=== PATIENT | female | born 1945 | race Caucasian/White ===

== ENCOUNTER 2016-07-21 13:40 | Inpatient (IN) | payer MEDICARE ==
[~2016-07-21] VITALS: Ht 154.9 cm; Wt 68.7 kg
[~2016-07-21 13:40] MED LIST: ALPR0.25 PO; ASPI-482 PO; DEXT10TA38 PO; DEXT20TA24 PO; FLUO20CA16 PO; INSU100I13 SQ; INSU100V5 SUBCUT; LOSA50TA6 PO; METO25TA9 PO; NEBI5TAB2 PO; TRAM50TA PO; TRAZ50TA15 PO
[2016-07-21 14:09] LABS: BASO # 0.1 x10^3/uL (0.0-0.2); BASO % 1 % (0-3); EOS # 0.1 x10^3/uL (0.0-0.7); EOS % 1 % (0-3); HEMATOCRIT 42.8 % (36.0-47.0); HEMOGLOBIN 14.3 g/dL (12.0-15.5); LYMPH # 1.4 x10^3/uL (1.0-4.8); LYMPH % 11 % (24-48); MEAN CORPUSCULAR HEMOGLOBIN 29 pg (25-35); MEAN CORPUSCULAR HGB CONC 34 g/dL (31-37); MEAN CORPUSCULAR VOLUME 88 fL (79-100); MONO # 0.8 x10^3/uL (0.0-1.1); MONO % 7 % (0-9); NEUT # 10.5 x10^3uL (1.8-7.7); NEUT % 81 % (31-73); PLATELET COUNT 272 x10^3/uL (140-400); RED BLOOD COUNT 4.89 x10^6/uL (3.50-5.40); RED CELL DISTRIBUTION WIDTH 13.7 % (11.5-14.5)
[2016-07-21 14:19] LABS: ALBUMIN 3.1 g/dL (3.4-5.0); ALBUMIN/GLOBULIN RATIO 0.7 (1.0-1.7); CALCIUM 9.3 mg/dL (8.5-10.1); CREATININE 1.5 mg/dL (0.6-1.0); GFR 34.1; POTASSIUM 3.5 mmol/L (3.5-5.1); TOTAL BILIRUBIN 0.5 mg/dL (0.2-1.0); TOTAL PROTEIN 7.4 g/dL (6.4-8.2)
--- NOTE | 2016-07-21 14:19 | RAD ---
CT of the head without contrast, 07/21/2016: History: Dizziness, Right leg numbness Comparison is made to a study from 09/04/2014. There is moderate cerebral atrophy. The ventricles are within normal limits in size. There is no shift of the midline structures. There is no evidence of acute intracranial hemorrhage or mass effect. Small lucencies along the lateral aspects of both basal ganglia are probably old infarcts. No abnormal extra-axial fluid collection or mass is seen. IMPRESSION: 1. Chronic findings as described above. 2. No acute intracranial abnormality is detected. PQRS Compliance Statement: One or more of the following individualized dose reduction techniques were utilized for this examination: 1. Automated exposure control 2. Adjustment of the mA and/or kV according to patient size 3. Use of iterative reconstruction technique
[2016-07-21] MEDS ORDERED: ASPIRIN 81 MG TAB.CHEW ONE (16:43)
[2016-07-21] MEDS ORDERED: INSULIN REGULAR 100 UNIT/ML 10ML VIAL. SQ ONE (16:45)
[2016-07-21] MEDS ORDERED: IV NORMAL SALINE 1,000ML 1,000 ML IV ONE (16:45)
[2016-07-21] MEDS ORDERED: ASPIRIN ENTERIC COATED 81 MG TABLET.DR. PO ONE (17:00)
--- NOTE | 2016-07-21 17:49 | ED.ADGEN ---
Past History Past Medical History: Diabetes, Hypertension Past Surgical History: Cholecystectomy, Hysterectomy, Tubal ligation Smoking: Non-smoker Alcohol Use: None Drug Use: None Adult General Chief Complaint Chief Complaint Dizziness, fall HPI HPI Patient is a 70-year-old with history of CVA who presents with dizziness acute onset last night with fall while getting out of bed earlier this morning. Patient is unclear when she fell, initially she states was last night and then this morning. She landed on her right shoulder and elbow. Denies hitting head, loss of consciousness or neck pain. Reports right arm weakness and right leg numbness.ient is not on anticoagulation therapy. She lives at home alone and was found by her daughter after my for at least 1 hour prior to ED arrival. No other acute symptoms or complaints. Blood sugars noted be elevated its patient was unable to take insulin this morning secondary to fall. Review of Systems Review of Systems Review symptoms as per HPI. All other review of symptoms are negative. Current Medications Current Medications Current Medications Medications (Trade) Dose Ordered Sig/Mathew Start Time Stop Time Status Last Admin Dose Admin Aspirin (Aspirin Enteric Coated) 162 mg 1X ONCE 07/21/16 17:00 07/21/16 17:01 DC 07/21/16 16:47 162 MG Aspirin (Children'S Aspirin) 81 mg STK-MED ONCE 07/21/16 16:43 07/21/16 16:44 DC Insulin Human Regular (Novolin R) 10 unit 1X ONCE 07/21/16 16:45 07/21/16 16:46 DC 07/21/16 16:41 10 UNIT Sodium Chloride (Iv Sodium Chloride 0.9% 1,000ml) 1,000 ml @ 1,000 mls/hr 1X ONCE 07/21/16 16:45 07/21/16 17:44 07/21/16 16:40 1,000 MLS/HR Allergies Allergies Allergies Coded Allergies Type Severity Reaction Last Updated Verified Penicillins Allergy Intermediate rash 09/03/13 Yes Physical Exam Physical Exam Constitutional: Well developed, well nourished, no acute distress, non-toxic appearance. HENT: Normocephalic, atraumatic, bilateral external ears normal, oropharynx moist, no oral exudates, nose normal. Eyes: PERRLA, EOMI, conjunctiva normal. Neck: Normal range of motion, no midline tenderness. Cardiovascular:Heart rate regular rhythm, no murmur. Lungs & Thorax: Bilateral breath sounds clear to auscultation. Abdomen: Bowel sounds normal, soft, no tenderness, no masses, no pulsatile masses. Skin: Warm, dry. Back: No tenderness. Extremities: Right upper extremity, bruising nations her right extremity, no joint tenderness, swelling or deformities. Neurologic: Alert and oriented X 3, cranial nerves II through XII grossly intact , right pronator drift, decreased sensation right leg, no lower extremity motor weakness. Reflexes 2+ and symmetric upper and lower. Psychologic: Affect normal, judgement normal, mood normal. Current Patient Data Vital Signs Vital Signs Date Time Temp Pulse Resp B/P Pulse Ox O2 Delivery O2 Flow Rate FiO2 07/21/16 14:14 97.9 96 18 98 Room Air Lab Results Laboratory Tests Test 07/21/16 13:50 White Blood Count 13.0x10^3/uL (4.0-11.0) H Red Blood Count 4.89x10^6/uL (3.50-5.40) Hemoglobin 14.3g/dL (12.0-15.5) Hematocrit 42.8% (36.0-47.0) Mean Corpuscular Volume 88fL (79-100) Mean Corpuscular Hemoglobin 29pg (25-35) Mean Corpuscular Hemoglobin Concent 34g/dL (31-37) Red Cell Distribution Width 13.7% (11.5-14.5) Platelet Count 272x10^3/uL (140-400) Neutrophils (%) (Auto) 81% (31-73) H Lymphocytes (%) (Auto) 11% (24-48) L Monocytes (%) (Auto) 7% (0-9) Eosinophils (%) (Auto) 1% (0-3) Basophils (%) (Auto) 1% (0-3) Neutrophils # (Auto) 10.5x10^3uL (1.8-7.7) H Lymphocytes # (Auto) 1.4x10^3/uL (1.0-4.8) Monocytes # (Auto) 0.8x10^3/uL (0.0-1.1) Eosinophils # (Auto) 0.1x10^3/uL (0.0-0.7) Basophils # (Auto) 0.1x10^3/uL (0.0-0.2) Sodium Level 136mmol/L (136-145) Potassium Level 3.5mmol/L (3.5-5.1) Chloride Level 99mmol/L (98-107) Carbon Dioxide Level 27mmol/L (21-32) Anion Gap 10 (6-14) Blood Urea Nitrogen 27mg/dL (7-20) H Creatinine 1.5mg/dL (0.6-1.0) H Estimated GFR (Cockcroft-Gault) 34.1 BUN/Creatinine Ratio 18 (6-20) Glucose Level 388mg/dL (70-99) H Calcium Level 9.3mg/dL (8.5-10.1) Total Bilirubin 0.5mg/dL (0.2-1.0) Aspartate Amino Transferase (AST) 17U/L (15-37) Alanine Aminotransferase (ALT) 24U/L (14-59) Alkaline Phosphatase 124U/L (46-116) H Creatine Kinase 185U/L (26-192) Troponin I Quantitative < 0.017ng/mL (0-0.055) Total Protein 7.4g/dL (6.4-8.2) Albumin 3.1g/dL (3.4-5.0) L Albumin/Globulin Ratio 0.7 (1.0-1.7) L EKG EKG [EKG: Normal sinus rhythm.] Radiology/Procedures Radiology/Procedures [CT head chronic findings, no acute intracranial abnormality.] Impressions: Dizziness and fall with right upper extremity weakness and right lower extremity numbness likely tripping to fall. Course & Med Decision Making Course & Med Decision Making Pertinent Labs and Imaging studies reviewed. (See chart for details) [NIH SS 5. Patient unable to recollect time of fall. She does not recall time of fall, but timeline is suggestive greater than 4.5 hours prior to ED arrival bruising appears to be several hours old. TPA contraindicated, aspirin given. Blood sugar address. Dr. Elmore to admit. Final Impression Final Impression [1. CVA 2. Right sided weakness 3. hyperglycemia] Problems: Dragon Disclaimer Dragon Disclaimer This electronic medical record was generated, in whole or in part, using a voice recognition dictation system. AVA SILVA DO Jul 21, 2016 17:49
[2016-07-21] MEDS ORDERED: FLUO40CA2 PO (19:46)
[2016-07-21] MEDS ORDERED: ATOR10TA60 PO (19:46)
[2016-07-21] MEDS ORDERED: CARV6.252 PO (19:46)
[2016-07-21] MEDS ORDERED: QUET50TA5 PO (19:48)
[2016-07-21] MEDS ORDERED: ASPI1TAB2 PO (19:49)
[2016-07-21] MEDS ORDERED: ASA/APAP/CAFFEINE 250/250/65MG TABLET. PO PRN (20:00)
[2016-07-21 20:18] LABS: BILIRUBIN,URINE NEG (NEG); CLARITY,URINE CLEAR; COLOR,URINE YELLOW; GLUCOSE,URINE NEG (NEG); NITRITE,URINE NEG (NEG); UROBILINOGEN,URINE 0.2 mg/dL (0.2 mg/dL)
[2016-07-21 20:31] VITALS: BP 180/89
[2016-07-21] MEDS ORDERED: INSULIN DETEMIR 300 UNITS/3 ML INSULN.PEN. SQ SCH (21:00)
[2016-07-21] MEDS: ACETAMINOPHEN 650 MG/20.3 ML SOLUTION. PO SCH ×2 (21:02→21:21)
[2016-07-21] MEDS: QUEtiapine 50 MG TABLET. PO SCH (21:04)
[2016-07-21] MEDS: CARVEDILOL 6.25 MG TABLET PO SCH (21:04)
[2016-07-21] MEDS: ATORVASTATIN CALCIUM 10 MG TABLET. PO SCH (21:04)
[2016-07-21] MEDS: IV NORMAL SALINE 1,000ML 1,000 ML IV SCH (21:11)
[2016-07-21] MEDS ORDERED: ASPIRIN 81 MG TAB.CHEW PO ONE (22:00)
[2016-07-21] MEDS ORDERED: AMLODIPINE BESYLATE 5 MG TABLET PO ONE (22:00)
[2016-07-21] MEDS: HYDROCODONE/APAP 5/325MG TABLET. PO PRN (22:08)
[2016-07-21 22:15] VITALS: BP 159/78
[2016-07-21 23:05] VITALS: BP 158/82
--- NOTE | 2016-07-22 03:01 | CONS ---
DATE OF CONSULTATION: 07/21/2016 REFERRING PHYSICIAN: ANISH HOYOS DO REASON FOR CONSULTATION: Right-sided weakness and numbness. HISTORY OF PRESENT ILLNESS: This is a 70-year-old right-handed white female who has been in her usual state of health until this morning around 10:00 when she woke up. She had right-sided weakness confined to the upper or lower extremities, associated with numbness and paresthesia of the face as well. The patient went last night to bed and had no neurological complaints. She denies headaches, visual disturbances, nausea, vomiting, chest pain, shortness of breath or palpitations, dysarthria or dysphagia. EMS was activated. On arrival to the Emergency Room, her blood pressure was high. Her blood sugar was markedly elevated at 388. The patient did not have any memory loss. When she tried to get out of the bed, she fell on the floor and had several ecchymoses over the right upper and lower extremities. She was unable to take her insulin in the morning secondary to fall. PAST MEDICAL HISTORY: Significant for hypertension, hyperlipidemia, diabetes mellitus was poorly controlled probably due to noncompliance, arthritis, fibromyalgia, attention deficit disorders. SOCIAL HISTORY: The patient denies smoking, alcohol drinking, or illicit drug use. PAST SURGICAL HISTORY: Significant for cholecystectomy, hysterectomy, and tubal ligation. REVIEW OF SYSTEMS: Weakness and numbness of the right upper and lower extremities and mild numbness of the right face. Otherwise, unremarkable. PHYSICAL EXAMINATION: GENERAL: Well-developed, well-nourished, white female, not in acute distress. She weighs 152.3 pounds. VITAL SIGNS: Blood pressure 180/81, respiratory rate is 20, pulse is 90 and regular, temperature 98.3, oxygen saturation 98% on room air. HEENT: Normocephalic, atraumatic, otherwise unremarkable. NECK: Supple. Negative for carotid bruit, lymphadenopathy or thyromegaly. LUNGS: Clear to A and P. CARDIOVASCULAR: Regular rate and rhythm, normal S1, S2. There is no S3, S4 or murmur. ABDOMEN: Soft, bowel sounds positive. There is no bowel mass, organomegaly or tenderness. EXTREMITIES: Negative for cyanosis, clubbing or pitting edema. NEUROLOGIC: MENTAL STATUS: The patient is alert and oriented x 3. Speech is fluent. There is no language dysfunction. Memory is intact. Judgment, abstract and thinkings are normal. The patient denies hallucination or delusion. CRANIAL NERVES: Visual awad are full. The pupils are reactive to light and accommodation. Extraocular movements are intact. There is no nystagmus. There is no facial deficit. The strength is 4/5 in the right upper and lower extremities with the right upper extremity pronation. MOTOR EXAMINATION: The strength in the left upper and lower extremities is normal at 5/5 throughout. SENSORY EXAMINATION: Revealed diminished pinprick and light touch senses over the right face, right upper and lower extremities. Sensory examination also was normal to pinprick, light touch, vibratory and position senses. DEEP TENDON REFLEXES: Symmetric and active with a positive Babinski on the right side. GAIT: The patient has unsteady stance. COORDINATION: The patient has abnormal [id number] and [id number] on the right side compared to normal findings on the left side. DIAGNOSTIC: Initial nonenhanced head CT scan revealed evidence of old small infarct on the bilateral basal ganglia, otherwise no acute intracranial process. LABORATORY DATA: CBC revealed white blood cells of 15,000, hemoglobin 14.3, hematocrit 42.8, platelet count of 272,000. with left shift. Chemistry: Sodium of 136, potassium 3.5, chloride 99, CO2 27, BUN 27, creatinine 1.5, glucose 388, calcium 9.3, alkaline phosphatase is 124. Troponin level less than 0.017. Creatinine kinase is normal at 185, magnesium is 1.9. Urinalysis revealed no evidence of urinary tract infections. Coagulation: PT is 10.1, INR is 1. IMPRESSION: 1. Acute onset of right hemiparesis and hemisensory deficit. Rule out left hemispheric ischemic stroke. The patient has multiple risk factors for stroke including severe hypertension, hyperlipidemia and poorly controlled diabetes mellitus. 2. Multiple medical problems include hypertension, hyperlipidemia, poorly controlled diabetes mellitus insulin-dependent, and anxiety. RECOMMENDATIONS: 1. Start the patient on aspirin 325 mg. 2. Heparin subacute 5000 q 8 hours. 3. Brain MRI. 4. Carotid Doppler study, echocardiogram. 5. Fasting lipid profile. 6. Physical therapy. 7. Treat underlying severe hypertensions and add amlodipine at 5 mg and adjust the dose accordingly. M Silvina PARTIDA MD DR: ROBERT/nicho JOB#: [id number] / [id number]
[2016-07-22] MEDS: IV NORMAL SALINE 1,000ML 1,000 ML IV SCH ×2 (05:24→10:00)
[2016-07-22] MEDS: ACETAMINOPHEN 650 MG/20.3 ML SOLUTION. PO SCH ×3 (05:26→20:46)
[2016-07-22 05:27] VITALS: BP 167/81
[2016-07-22] MEDS: HEPARIN PF for SUB-Q USE 5,000 UNIT/0.5 ML VIAL. SQ SCH ×3 (05:28→21:02)
[2016-07-22 06:39] LABS: BASO # 0.1 x10^3/uL (0.0-0.2); BASO % 1 % (0-3); EOS # 0.3 x10^3/uL (0.0-0.7); EOS % 4 % (0-3); HEMATOCRIT 37.2 % (36.0-47.0); HEMOGLOBIN 12.5 g/dL (12.0-15.5); LYMPH % 38 % (24-48); MEAN CORPUSCULAR HEMOGLOBIN 29 pg (25-35); MEAN CORPUSCULAR HGB CONC 34 g/dL (31-37); MEAN CORPUSCULAR VOLUME 87 fL (79-100); MONO # 0.8 x10^3/uL (0.0-1.1); MONO % 10 % (0-9); NEUT # 3.9 x10^3uL (1.8-7.7); NEUT % 49 % (31-73); PLATELET COUNT 254 x10^3/uL (140-400); RED BLOOD COUNT 4.25 x10^6/uL (3.50-5.40); RED CELL DISTRIBUTION WIDTH 14.5 % (11.5-14.5); WHITE BLOOD COUNT 8.1 x10^3/uL (4.0-11.0)
[2016-07-22 06:51] LABS: ALBUMIN 2.6 g/dL (3.4-5.0); ALBUMIN/GLOBULIN RATIO 0.7 (1.0-1.7); CALCIUM 8.3 mg/dL (8.5-10.1); CREATININE 1.4 mg/dL (0.6-1.0); POTASSIUM 3.1 mmol/L (3.5-5.1); TOTAL BILIRUBIN 0.4 mg/dL (0.2-1.0); TOTAL PROTEIN 6.1 g/dL (6.4-8.2)
[2016-07-22] MEDS: HYDROCODONE/APAP 5/325MG TABLET. PO PRN ×3 (07:49→16:11)
[2016-07-22] MEDS ORDERED: ASPIRIN 81 MG TAB.CHEW PO SCH ×2 (08:00)
[2016-07-22] MEDS ORDERED: POTASSIUM CHLORIDE 20 MEQ TABLET.ER. PO ONE (08:00)
[2016-07-22 08:03] VITALS: BP 154/75
[2016-07-22] MEDS: LIDOCAINE (700MG/PATCH) PATCH. TD SCH (08:25)
[2016-07-22] MEDS: ASPIRIN 325 MG TABLET PO SCH (08:50)
[2016-07-22] MEDS: FLUOXETINE HCL 20 MG CAPSULE PO SCH (08:51)
[2016-07-22] MEDS: INSULIN ASPART 300 UNITS/3 ML INSULN.PEN SQ SCH ×4 (08:57→20:47)
[2016-07-22] MEDS: CARVEDILOL 6.25 MG TABLET PO SCH ×2 (09:17→18:10)
[2016-07-22] MEDS: ATORVASTATIN CALCIUM 10 MG TABLET. PO SCH (09:17)
[2016-07-22 10:10] VITALS: BP 123/71
--- NOTE | 2016-07-22 10:52 | RAD ---
Carotid ultrasound, 07/22/2016: History: Weakness and tingling, possible CVA Duplex evaluation of the carotid arteries in the neck was performed including grayscale, color-flow and spectral Doppler analysis. There is mild intimal thickening in the common carotid arteries and smooth plaquing at the carotid bifurcations. There is moderate tortuosity of the proximal right internal carotid artery. The Doppler data obtained from the bifurcations reveals no significant focal velocity acceleration to suggest hemodynamically significant carotid stenosis. The peak systolic velocity in the right internal carotid artery is 85 cm/s, and on the left is 57 cm/s. Antegrade flow is present in both vertebral arteries in the neck. IMPRESSION: Mild atherosclerotic plaquing at both carotid bifurcations with underlying luminal narrowing in the 0-50% diameter range bilaterally. Note: Stenosis calculations for CT, MRA and conventional angiography are based upon determination of the distal ICA diameter in accordance with the NASCET methodology. Stenosis calculations for Doppler studies are derived from validated velocity criteria which are known to correlate with NASCET methodology of determining stenosis.
--- NOTE | 2016-07-22 12:25 | HP ---
ADMIT DATE: 07/21/2016 REASON FOR ADMISSION: Stroke-like symptoms. HISTORY OF PRESENT ILLNESS: This is a 70-year-old female, who got up yesterday morning and the right leg was so numb that she could not walk on it. The patient fell and was on the floor for an hour until her daughter came. She was also complaining of right-sided weakness and some numbness of her face as well. She was fine prior to that going to bed. The patient was brought by ambulance to the Emergency Room. She was not a candidate for stroke intervention as far as acute stroke. PAST MEDICAL HISTORY: Hypertension, type 2 diabetes, adult attention deficit disorder, history of frequent falls, in 2013 had a fall with a small subdural hematoma, 09/2014 had an episode of slurred speech and weakness as well. ALLERGIES: PENICILLIN. MEDICATIONS: She does not know her meds, but had bottles and they were reviewed and are available on the MAR and have been corrected. SOCIAL HISTORY: The patient never smoked, never used alcohol. She used to work at , but no longer works. REVIEW OF SYSTEMS: Denies any dysuria or constipation, visual problems, sore throat, fever. She does complain of some numbness of the right face and weakness in the right leg and frequent falls. No weight loss. OBJECTIVE: VITAL SIGNS: Blood pressure 154/75, pulse 74, respirations 16, temperature 97.7, and pulse ox 99% on room air. HEENT: The patient's hearing is normal. Her TMs were intact without erythema. Her pupils were equal, round, and react to light. Extraocular muscles were intact. Her nose was patent. Her throat was clear. Tongue was midline. NECK: Supple, without adenopathy. The thyroid was not enlarged. There were no carotid bruits. LUNGS: Clear to auscultation. CARDIOVASCULAR: Regular rhythm and rate. ABDOMEN: Soft, nontender. EXTREMITIES: Without edema. NEUROLOGIC: Reflexes were brisk 2+/4. The patient has a strong gag. Tongue is midline. Shoulder shrug is normal. Vision is normal. She does have some numbness on the right side of her face compared to the left. Proprioception of the right side of her body is impaired and weak machine try out setter strengths were good. For more in-depth neurologic exam see Dr. Cavanaugh's note. IMAGING: CT of the head shows moderate cerebral atrophy, probable old basal ganglia infarcts bilaterally, but no bleeding or mass seen. ASSESSMENT: 1. Acute cerebrovascular accident with right-sided weakness 2. Hyperglycemia. 3. Hypokalemia. 4. Hypertension. 5. Type 2 diabetes with hyperglycemia. 6. Chronic kidney disease stage 3. 7. Mild protein malnutrition, initial albumin was 3.1. PLAN: Treat glucoses, MRI, carotid Dopplers, aspirin. She has been seen by physical therapy and occupational therapy that recommend acute post-stroke rehabilitation. ANISH HOYOS DO DR: RAN/nicho JOB#: [id number] / [id number]
[2016-07-22] MEDS ORDERED: INSULIN DETEMIR 300 UNITS/3 ML INSULN.PEN. SQ SCH (14:23)
--- NOTE | 2016-07-22 14:43 | ACF ---
Admission Criteria Forms NEUROLOGY GRG Clinical Indications for Admission to Inpatient Care (Place ' X' for any and all applicable criteria): Hospital admission is needed for appropriate care of the patient because of 1 or more of the following: [ ]I. Encephalitis [ ]II. Severe [employer] infections indicated by 1 or more of the following(1)(2)(3) : [ ]a) Intracranial abscess [ ]b) Spinal abscess or myelitis [ ]c) Tuberculous or other nonbacterial, nonviral PL[employer]ING MANAGEMENT IT SPECIALIST infection(8) [ ]III. Vasculitis and 1 or more of the following(14)(15): []a) Altered mental status that is severe or persistent or other acute neurologic change []b) Psychosis []c) Seizure [ ]IV. Status epilepticus or repetitive seizures not controlled with emergent treatment [A] (7)(8) [ ]V. Altered mental status that is severe or persistent [ ]. Transient alteration in consciousness with high-risk etiology; examples include (12)(13): [ ]a) Cardiovascular source [ ]b) Cataplexy [ ]VII. Cerebral aneurysm requiring ANY ONE of the following(14): [ ]a) IV antihypertensives or vasoactive agents [ ]b) Sedation and analgesia for suspected leak [ ]c) Need for external ventricular drainage and cerebral perfusion pressure monitoring [ ]d) Emergent evaluation to determine need for surgical clipping or endovascular coiling by interventional radiology. If surgery is required ( Also use Craniotomy, Supratentorial, for Surgery of Bleeding Intracranial Aneurysm (for bleeding aneurysm) or Craniotomy, Supratentorial (for nonbleeding aneurysm) as appropriate. [ ]VIII. New-onset severe neurologic symptom requiring inpatient care indicated by ANY ONE of the following: [ ]a) Aphasia(15) [ ]b) Weakness (grade 3 or less) [ ]c) Paralysis (eg, hemiplegia) [ ]d) Spasticity(16) [ ]e) Dystonia [ ]e) Ataxia(17) [ ]f) Amnesia(18) [ ]g) Involuntary movements(19) [ ]h) Vertigo [ ] Visual loss [ ]i) Other severe neurologic finding (eg, papilledema, mass effect on imaging, myoclonus not treatable at alternative level of care (eg, observation care) [ ]IX. Guillain-Horatio syndrome(20) [ ]X. Myasthenia gravis crisis or inpatient monitoring need as indicated by 1 or more of the following(21): [ ]a) Intensive treatment (eg, course of plasmapheresis) with inadequate outpatient situation to monitor patients status [ ]b) Inadequate airway protection [ ]c) Respiratory insufficiency requiring intubation or inpatient. monitoring [ ]d) Progressive dysphagia with failure to thrive [ ]XI. Multiple sclerosis or other acute demyelinating disease requiring inpatient care as indicated by 1 or more of the following (22)(23): [ ]a) Acute severe deterioration requiring inpatient treatment (eg, IV steroids, plasmapheresis, close observation) [ ]b) Acute complication requiring inpatient care (eg, sepsis, severe decubitus, aspiration) [ ]XII.Parkinson disease requiring inpatient care (Also use Optimal Recovery Care Criteria or General Recovery Criteria as appropriate) indicated by 1 or more of the following(25): [ ]a) Infection (eg, aspiration pneumonia) not treatable at alternative level of care [ ]b Dehydration that is severe or persistent [ ]c) Life-threatening agitation or psychotic behavior not treatable on emergency, observation care, or alternative level (eg, residential) basis [ ]d) Severe medication withdrawal effects (eg, freezing, neuroleptic malignant syndrome) not responsive to emergency and observation care treatment ( as appropriate) [ ]e) Other severe manifestation not treatable at alternative level of care [ ]XII. Amyotrophic lateral sclerosis with inpatient care needs as indicated by ANY ONE of the following(26): [ ]a) Acute complications (eg, aspiration pneumonia, sepsis ) requiring inpatient care ( see other optimal Recovery Guideline as appropriate) [ ]b) Dehydration that is severe persistent AND artificial support desired [ ]c) Inadequate airway protection AND artificial support desired [ ]d) Severe ventilatory insufficiency AND artificial support desired [ ]XIII. Myasthenia gravis crisis or inpatient monitoring need as indicated by 1 or more of the following(21): [] a) Inadequate airway protection []b) Respiratory insufficiency requiring intubation or inpatient monitoring []c) Progressive dysphagia with failure to thrive []d) Intensive treatment (e.g., course of plasmapheresis) with inadequate outpatient situation to monitor patients status [ ]XIV. Multiple sclerosis or other acute demyelinating disease requiring inpatient care indicated by 1 or more of the following[C](36)(43)(44)(45)(46): []a) Acute severe deterioration requiring inpatient treatment (eg, IV steroids, plasmapheresis, close observation) []b) Acute complication requiring inpatient care (eg, sepsis, severe decubitus, aspiration) [ ]XV. Intracranial hypertension (e.g., pseudotumor cerebri) requiring inpatient care (e.g., acute visual loss, inadequate oral intake) (47)(48)(49) [ ]XVI. Parkinson disease requiring inpatient care (Also use Optimal Recovery Care Criteria or General Recovery Criteria as appropriate) indicated by 1 or more of the following(25): [] a) Infection (e.g., aspiration pneumonia) not treatable at alternative level of care []b) Volume depletion not responsive to emergency and observation care treatment (as appropriate) []c) Life-threatening agitation or psychotic behavior not treatable on emergency, observation care, or alternative level (e.g., residential) basis []d) Severe medication withdrawal effects (e.g., freezing, neuroleptic malignant syndrome) not responsive to emergency and observation care treatment (as appropriate) []e) Other severe manifestation not treatable at alternative level of care [ ]XVII. Amyotrophic lateral sclerosis with inpatient care needs as indicated by1 or more of the following(42): []a) Acute complications (eg, aspiration pneumonia, sepsis) requiring inpatient care (see other Optimal Recovery Guideline or General Recovery Guideline as appropriate) []b) Dehydration that is severe or persistent AND artificial support desired []c) Inadequate airway protection AND artificial support desired []d) Severe ventilatory insufficiency AND artificial support desired [ ]XVIII. Severe myopathy, neuropathy, or other neuromuscular disease indicated by 1 or more of the following(42)(52)(53)(54): []a ) New-onset severe diffuse weakness (eg, strength 3/5 or less) []b) Severe dysphagia []c) Dyspnea at rest or with minimal exertion (new) []d) Inadequate airway protection []e) Inadequate ventilation indicated by 1 or more of the following : i) Partial pressure of carbon dioxide greater than 44 mm Hg ( 5.9 kPa) (new) ii) Reduced peak expiratory flow rate (new) iii) Vital capacity less than 50% of predicted (less than 15 mL/kg) iv) Peak inspiratory force less negative than -30 cm H2O (- 2942 Pa) [ ]XVII.Complications of congenital or degenerative disease (eg, infection, seizures, dehydration, injury) not responsive to emergency and observation care treatment (as appropriate ) [C](16)(29)(30) [ ]XVIII.Suspected or confirmed nerve or muscle toxic injury, including ANY ONE of the following: [ ]a) Rhabdomyolysis(31) i) Acute renal failure ii) Dehydration that is severe or persistent iii) Altered mental status that is severe or persistent iv) Electrolyte abnormality that remains after emergency or observation level care ( as appropriate) [ ]b) Botulism(32) [ ]c) Other severe toxin-induced sign or symptom [ ]XIX. Neurologic trauma requiring inpatient treatment (medical) indicated by ANY ONE of the following(33)(34): [ ]a) Vital signs or neurologic signs more frequently than every 4 hours [ ]b) Hyperosmolar therapy [ ]c) Respiratory monitoring [ ]d) Intracranial pressure monitoring and treatment [ ]e) Stabilization and immobilization device placement (eg, braces, body jacket) [ ]f) Intubation & mechanical ventilation for airway protection or therapeutic hyperventilation [ ]g) Other treatment or monitoring needed that requires inpatient level of care [ ]XX.Complications of neurologic devices (eg, ventricular shunt, neurostimulator) requiring 1 or more of the following(35)(36): [ ]a) IV antibiotics with monitoring while awaiting culture results [ ]b) Monitoring for hydrocephalus [x]XXI. Neurology condition symptom, or finding for which emergency and observation care have failed or are not considered appropriate. See General Criteria: Observation Care ISC, General Admission Criteria GRG, or Pediatric General Admission Criteria [facility]G guideline as appropriate. The original [facility] [employer] content created by [facility] has been revised. The portions of the content which have been revised are identified through the use of italic text or in bold, and [facility] has neither reviewed nor approved the modified material. All other unmodified content is copyright [facility] Please see references footnoted in the original [facility] edition 2016 Admission Criteria Met?: Yes NEO MAST Jul 22, 2016 14:43
[2016-07-22 16:29] VITALS: BP 188/77
[2016-07-22 19:29] VITALS: BP 142/62
[2016-07-22] MEDS: QUEtiapine 50 MG TABLET. PO SCH (20:46)
--- NOTE | 2016-07-22 21:54 | PN ---
DATE: SUBJECTIVE: The patient continues to have weakness and numbness of the right upper extremity. She denies headaches, visual disturbances, nausea, vomiting, chest pain, shortness of breath or palpitation, dysarthria, dysphagia or dizziness. OBJECTIVE: GENERAL: Well-developed, well-nourished white female, not in acute distress. She weighs 152 pounds. VITAL SIGNS: Blood pressure at 10:00 this morning it was 123/71, respiratory rate 18, pulse is 80, temperature 97.7 and oxygen saturation 97% on room air. HEENT: Normocephalic, atraumatic, otherwise unremarkable. NECK: Supple. Negative for carotid bruit, lymphadenopathy or thyromegaly. LUNGS: Clear to A and P. CARDIOVASCULAR: Regular rate and rhythm, normal S1, S2. ABDOMEN: Soft. Bowel sounds positive. EXTREMITIES: Negative for cyanosis, clubbing or pitting edema. NEUROLOGICAL EXAM: Mental Status: The patient is alert and oriented x 3. Speech is fluent. There is no language dysfunction, otherwise unremarkable. Cranial nerves are intact. Motor examination: Right upper extremity paresis. Sensory examination, mildly diminished pinprick and light touch senses over the right upper and lower extremities, improved from yesterday. Deep tendon reflexes were symmetric and active with equivocal Babinski. Gait not tested. Coordination, the patient has abnormal [id number] on the right side compared to normal left [id number] and hip-to-miranda. DIAGNOSTIC STUDIES: Brain MRI revealed evidence of small acute left thalamic stroke, mild small vessel ischemic changes and MRA shows potential for left MCA that is M1 moderate stenosis potentials. Carotid Doppler study revealed no significant arterial stenosis. LABORATORY DATA: CBC revealed white blood cells of 8.1, hemoglobin 12.5, hematocrit 37.2 and platelet count 254,000. Chemistry revealed sodium 142, potassium 3.1, chloride 106, CO2 of 27, BUN 21, creatinine 1.4, glucose 160. Lipid profile is elevated, triglyceride at 189 and total cholesterol at 252 and LDL of 147 with high HDL at 68. IMPRESSION: 1. Status post acute left thalamic infarct resulted in right hemiparesis, more prominent on the upper extremities. 2. Multiple risk factors for stroke include diabetes mellitus, hypertension and hyperlipidemia. 3. Renal insufficiency/failure. RECOMMENDATIONS: 1. Continue with current management, adjust blood pressure medications, probably add amlodipine 5 mg p.r.n. daily. 2. Extensive physical rehabilitation for stroke. 3. Correct the underlying metabolic problems. 4. Potassium supplements. M Silvina PARTIDA MD DR: ROBERT/nicho JOB#: [id number] / [id number]
[2016-07-22 23:24] VITALS: BP 158/75
[2016-07-23] MEDS: ACETAMINOPHEN 650 MG/20.3 ML SOLUTION. PO SCH ×2 (05:42→13:50)
[2016-07-23] MEDS: HEPARIN PF for SUB-Q USE 5,000 UNIT/0.5 ML VIAL. SQ SCH ×2 (05:53→13:58)
[2016-07-23 05:55] VITALS: BP 174/102
[2016-07-23] MEDS ORDERED: AMLODIPINE BESYLATE 5 MG TABLET PO ONE (06:00)
[2016-07-23 06:58] LABS: HEMATOCRIT 37.2 % (36.0-47.0); HEMOGLOBIN 12.5 g/dL (12.0-15.5); RED BLOOD COUNT 4.27 x10^6/uL (3.50-5.40); RED CELL DISTRIBUTION WIDTH 14.2 % (11.5-14.5); WHITE BLOOD COUNT 6.9 x10^3/uL (4.0-11.0)
[2016-07-23] MEDS: HYDROCODONE/APAP 5/325MG TABLET. PO PRN ×2 (07:01→13:56)
[2016-07-23 07:11] LABS: ALBUMIN 2.5 g/dL (3.4-5.0); ALBUMIN/GLOBULIN RATIO 0.7 (1.0-1.7); CALCIUM 8.1 mg/dL (8.5-10.1); CREATININE 1.1 mg/dL (0.6-1.0); GFR 48.8; MAGNESIUM 1.8 mg/dL (1.8-2.4); POTASSIUM 3.1 mmol/L (3.5-5.1); TOTAL BILIRUBIN 0.4 mg/dL (0.2-1.0)
[2016-07-23 07:49] VITALS: BP 170/75
[2016-07-23] MEDS ORDERED: ATORVASTATIN CALCIUM 20 MG TABLET PO SCH (09:00)
[2016-07-23] MEDS: ASPIRIN 325 MG TABLET PO SCH (09:03)
[2016-07-23] MEDS: FLUOXETINE HCL 20 MG CAPSULE PO SCH (09:03)
[2016-07-23] MEDS: LIDOCAINE (700MG/PATCH) PATCH. TD SCH (09:04)
[2016-07-23] MEDS: CARVEDILOL 6.25 MG TABLET PO SCH (09:05)
[2016-07-23] MEDS: INSULIN ASPART 300 UNITS/3 ML INSULN.PEN SQ SCH ×2 (09:12→12:04)
[2016-07-23 10:10] VITALS: BP 132/58
--- NOTE | 2016-07-23 14:16 | DS ---
DATE OF DISCHARGE: 07/23/2016 DISPOSITION: ____ rehab for post-stroke rehabilitation. DISCHARGE DIAGNOSES: 1. Status post acute left thalamic infarct with right hemiparesis. 2. Type 2 diabetes. 3. Hypertension. 4. Hyperlipidemia. 5. Renal insufficiency. 6. Middle cerebral artery stenosis. 7. Mild aortic regurgitation, mild tricuspid regurgitation and mild pulmonary hypertension. 8. Hypokalemia. 9. Severe protein malnutrition. HOSPITAL COURSE: A 70-year-old female admitted with acute stroke symptoms. She was outside the window of any pharmaceutical intervention. She was seen in consultation by Dr. Cavanaugh and also had an MRI showing the small left thalamic infarct. She was also seen by physical therapy and acute rehabilitation was recommended. Her blood pressure was elevated during her hospital stay and she was started on low dose of Norvasc. She initially had an elevated white count but there was no evidence of sepsis. The patient did start to improve in her function even while in the hospital and will be a great candidate for rehabilitation. On day of discharge, blood pressure initially 170/75, then 132/58, pulse 83, respirations 20 and pulse ox 98% on room air. DISPOSITION: ____ rehabilitation. For medication, see [facility]. ANISH HOYOS DO DR: RAN/nicho JOB#: [id number] / [id number]
[2016-07-23 14:36] VITALS: BP 128/82
[2016-07-23] MEDS ORDERED: Lidocaine TD (14:54)
[2016-07-23] MEDS ORDERED: Hydrocodone Bit/Acetaminophen PO (14:54)
[2016-07-23] MEDS ORDERED: ACET650S19 PO (14:54)
[2016-07-23] MEDS ORDERED: HEPA500022 SQ (14:54)
[2016-07-23] MEDS ORDERED: ATOR20TA58 PO (14:54)
--- NOTE | 2016-07-23 17:01 | PN ---
DATE: SUBJECTIVE: The patient denies any new medical or neurological complaints. She continues to have weakness of the right upper extremity. She denies headaches, visual disturbances, chest pain, shortness of breath or palpitation, dysarthria, dysphagia or vertigo. OBJECTIVE: GENERAL: Well-developed, well-nourished white female, not in acute distress. VITAL SIGNS: Blood pressure 170/75, respiratory rate 18, pulse is 82 and regular, temperature is 97.8 and oxygen saturation 97% on room air. HEENT: Normocephalic, atraumatic, otherwise unremarkable. NECK: Supple. Negative for carotid bruit, lymphadenopathy or thyromegaly. LUNGS: Clear to A and P. CARDIOVASCULAR: Regular rate and rhythm, normal S1, S2. There is no S3, S4 or murmur. ABDOMEN: Soft. Bowel sounds positive. EXTREMITIES: Negative for cyanosis, clubbing or pitting edema. NEUROLOGICAL EXAM: MENTAL STATUS: The patient is alert and oriented x 3. The speech is fluent. There is no language dysfunction. Memory, judgment, and abstract thinking are normal. The patient denies hallucination or delusion. Cranial nerves are intact. MOTOR EXAMINATION: No focal muscle bulk was seen. The tone is normal. The strength was 5/5 throughout. Sensory examination revealed slightly diminished pinprick and light touch senses over the right upper extremity in all dermatomes compared to those on the left side. Deep tendon reflexes were symmetric and hypoactive without pathologic responses. GAIT: The patient has a steady stance. LABORATORY DATA: CBC revealed white blood cells of 6900, hemoglobin 12.5, hematocrit 37.2 and platelet count 217,000. Chemistry revealed sodium 139, potassium 3.1, chloride 106, CO2 of 24, BUN 12, creatinine 1.1 and glucose is 161. IMPRESSION: 1. Status post acute small lacunar infarct confined to the left thalamus. 2. Multiple risk factors for stroke includes hypertension, diabetes mellitus, hyperlipidemia and age. 3. Hypokalemia. RECOMMENDATIONS: 1. Correct the underlying hypokalemia and hypertension. 2. The patient is going to rehabilitation hospital. She will continue on aspirin 325 mg. The systolic blood pressure should be maintained between 130-140 mmHg. M Silvina PARTIDA MD DR: ROBERT/nicho JOB#: [id number] / [id number]
== END 2016-07-23 16:49 | DRG 64 ==
LOC: ER 17:49 → 1 SOUTH 18:42
PROVIDERS: ADMIT Family Medicine; ATTEND Family Medicine
DX: I63.9 Cerebral infarction, unspecified (principal); E43 Unspecified severe protein-calorie malnutrition; G81.91 Hemiplegia, unspecified affecting right dominant side; E11.22 Type 2 diabetes mellitus with diabetic chronic kidney disease; E11.65 Type 2 diabetes mellitus with hyperglycemia; E78.5 Hyperlipidemia, unspecified; E87.6 Hypokalemia; F41.9 Anxiety disorder, unspecified; I07.1 Rheumatic tricuspid insufficiency; I12.9 Hypertensive chronic kidney disease with stage 1 through stage 4 chronic kidney disease, or unspecified chronic kidney disease; I27.2 Other secondary pulmonary hypertension; M19.90 Unspecified osteoarthritis, unspecified site; R41.840 Attention and concentration deficit; I35.1 Nonrheumatic aortic (valve) insufficiency; M79.7 Fibromyalgia; N18.3 Chronic kidney disease, stage 3 (moderate); W06.XXXA Fall from bed, initial encounter; Y93.89 Activity, other specified; Y92.098 Other place in other non-institutional residence as the place of occurrence of the external cause; Y99.8 Other external cause status; Z79.4 Long term (current) use of insulin; Z91.19 Patient's noncompliance with other medical treatment and regimen; Z91.81 History of falling; Z88.0 Allergy status to penicillin; Z90.49 Acquired absence of other specified parts of digestive tract; Z90.710 Acquired absence of both cervix and uterus; Z98.51 Tubal ligation status
CPT/HCPCS: 36415; 70450; 80053; 80061; 81003; 82550; 82947; 83735; 84436; 84443; 84484; 85027; 85610; 85730; 93880; 96372; 97163; J1815; 92610; 99285-25; J7030

== ENCOUNTER 2016-09-08 06:33 | Emergency (ER) | payer MEDICARE ==
[~2016-09-08] VITALS: Ht 154.9 cm; Wt 68.5 kg
[~2016-09-08 06:33] MED LIST changes: +ACET650S19 PO; +ASPI1TAB2 PO; +ATOR10TA60 PO; +ATOR20TA58 PO; +CARV6.252 PO; +FLUO40CA2 PO; +HEPA500022 SQ; +Hydrocodone Bit/Acetaminophen PO; +Lidocaine TD; +QUET50TA5 PO
--- NOTE | 2016-09-08 06:44 | PHYS DOC ---
General Stated Complaint: FALL Time Seen by MD: 06:35 Source: patient, EMS, RN notes reviewed, EMS notes reviewed, intermediate records Exam Limitations: no limitations Problems: History of Present Illness Occurred: just prior to arrival Severity: mild (patient denies any significant place of pain. Denies any associated headache or visual disturbance) Injuries/Pain Location: head (struck the back of the head and has a lump present.), lower extremity (struck left hip and has lump present to the left side. Patient was able to stand up and pivot at the intermediate.) Context: lost balance (patient reportedly is not to be up by herself due to her pmh of cerebellar stroke. She is in NH for rehabilitation following CVA. ) Loss of Consciousness: no loss of consciousness Associated Symptoms: denies symptoms Allergies: Coded Allergies: Penicillins (Verified Allergy, Intermediate, rash, 09/03/13) Past Medical History Medical History: vascular disease (CVA) Surgical History: noncontributory Family History Significant Family History: no pertinent family hx Social History Smoker: non-smoker Alcohol: none Drugs: none Review of Systems Constitutional: no symptoms reported Eyes: no symptoms reported Ears, Nose, Mouth, Throat: no symptoms reported Respiratory: no symptoms reported Cardiovascular: no symptoms reported Gastrointestinal: no symptoms reported Genitourinary: no symptoms reported Musculoskeletal: joint swelling Skin: lumps (present to the scalp and the left hip) Psychiatric/Neurological: no symptoms reported All Other Systems: Reviewed and Negative Physical Exam General Appearance: WD/WN, no apparent distress Head: contusions (Minimal pain with palpation. No crepitus. No instability noted. ), ecchymosis, swelling (present to the posterior parietal region. ) Eyes: bilateral eye normal inspection, bilateral eye PERRL, bilateral eye EOMI Ears, Nose, Mouth, Throat: hearing grossly normal, no evidence of ENT injury Neck: non-tender, full range of motion Cardiovascular/Respiratory: regular rate, rhythm Peripheral Pulses: 2+ carotid (R), 2+ carotid (L), 2+ dorsalis pedis (R) Gastrointestinal: non tender, soft, no organomegaly, no pulsatile mass Back: normal inspection, no CVA tenderness, no vertebral tenderness Extremities: normal range of motion, non-tender, pelvis stable, other ( hematoma present to the left hip region. Non tender to palpation. In interference with range of motion) Ama Coma Score Best Eye Response: (4) open spontaneously Best Verbal Response: (5) oriented Best Motor Response: (6) obeys commands Ama Total: 15 Orders, Labs, Meds Labs reviewed. Discussed with patient. No unusual findings. CT head and neck were negative as was her xray of pelvis and hip. Patient was given results and told that she would be able to return to the rehabilitation facility. Patient reported to me that she did not want to go back and I told the patient that it was very important for her to return to the rehab center so that she could hopefully transition back home. Patient is reluctant to return but I do not see any issue with her return. She was able to stand with assist and to ambulate a few steps with assist without any pain to the hip. Discussed with her that she would continue to have a hematoma and that it may take a few weeks to completely resolve. She should be seen by her PMD next week to make sure that it is getting better. Return for further concerns or any other issue. Stressed to patient that she requires assist any time that she is up. KP CRUZ MD Sep 08, 2016 06:44
[2016-09-08] MEDS: fentaNYL PF 100 MCG/2 ML VIAL IV ONE (07:15)
[2016-09-08] MEDS: ONDANSETRON PF 4 MG/2 ML VIAL. IV ONE (07:15)
--- NOTE | 2016-09-08 07:47 | RAD ---
Pelvis with left hip, 3 views, 09/08/2016: History: Fall, pain No acute fracture or dislocation is identified. The hip joints are well-maintained with only minimal marginal spurring. There is mild spurring along the margins of the greater trochanters. Mild degenerative change is present the symphysis pubis. IMPRESSION: No acute bony abnormality is detected.
--- NOTE | 2016-09-08 07:56 | RAD ---
CT of the head without contrast, 09/08/2016: History: Fall, head injury, previous stroke Comparison is made to a study from 07/21/2016. There is mild cerebral atrophy. Encephalomalacia has developed medially in the left occipital lobe compatible with an interval infarct. Several small lucencies are again noted in the basal ganglia, more so on the left, compatible with old infarcts. The ventricles are within normal limits in size. There is no shift of the midline structures. There is no evidence of acute intracranial hemorrhage or mass effect. No abnormal extra-axial fluid collection is seen. IMPRESSION: 1. Old infarcts as described above. 2. No acute intracranial abnormality is detected. CT of the cervical spine without contrast, 09/08/2016: Noncontrast scans were obtained with multiplanar reconstructions produced. There is moderate disc space narrowing and marginal spurring at multiple levels in the mid and lower cervical spine. There is a prominent posterior spur at C3-4. There are moderate degenerative changes involving scattered facet joints bilaterally. No acute fracture or dislocation is identified. There is moderate ligamentous calcification along the posterior aspect of the odontoid process. The combination of findings is causing mild central spinal stenosis at several levels. There is foraminal encroachment bilaterally at C3-4, C4-5 and C5-6. A right thyroid nodule is noted, but incompletely delineated on these scans. IMPRESSION: 1. Moderate multilevel degenerative change. 2. No acute bony abnormality is detected. PQRS Compliance Statement: One or more of the following individualized dose reduction techniques were utilized for this examination: 1. Automated exposure control 2. Adjustment of the mA and/or kV according to patient size 3. Use of iterative reconstruction technique
[2016-09-08 08:10] LABS: BASO # 0.1 x10^3/uL (0.0-0.2); BASO % 1 % (0-3); EOS # 0.3 x10^3/uL (0.0-0.7); EOS % 3 % (0-3); HEMATOCRIT 34.4 % (36.0-47.0); HEMOGLOBIN 11.7 g/dL (12.0-15.5); LYMPH # 2.2 x10^3/uL (1.0-4.8); LYMPH % 29 % (24-48); MEAN CORPUSCULAR HEMOGLOBIN 30 pg (25-35); MEAN CORPUSCULAR HGB CONC 34 g/dL (31-37); MEAN CORPUSCULAR VOLUME 88 fL (79-100); MONO # 0.9 x10^3/uL (0.0-1.1); MONO % 12 % (0-9); NEUT # 4.2 x10^3uL (1.8-7.7); NEUT % 56 % (31-73); PLATELET COUNT 231 x10^3/uL (140-400); RED BLOOD COUNT 3.91 x10^6/uL (3.50-5.40); RED CELL DISTRIBUTION WIDTH 14.7 % (11.5-14.5); WHITE BLOOD COUNT 7.6 x10^3/uL (4.0-11.0)
[2016-09-08 08:19] LABS: ALBUMIN 3.3 g/dL (3.4-5.0); CALCIUM 8.9 mg/dL (8.5-10.1); CREATININE 1.3 mg/dL (0.6-1.0); GFR 40.3; POTASSIUM 3.6 mmol/L (3.5-5.1); TOTAL BILIRUBIN 0.3 mg/dL (0.2-1.0); TOTAL PROTEIN 6.7 g/dL (6.4-8.2)
[2016-09-08] MEDS ORDERED: HYDR-2758 PO (08:57)
[2016-09-08 10:44] VITALS: BP 102/62
== END 2016-09-08 10:49 | disposition short-term general hospital (02) ==
LOC: ER 06:33
DX: S09.90XA Unspecified injury of head, initial encounter (principal); S70.02XA Contusion of left hip, initial encounter; Z88.0 Allergy status to penicillin; Z86.73 Personal history of transient ischemic attack (TIA), and cerebral infarction without residual deficits; W19.XXXA Unspecified fall, initial encounter; Y93.89 Activity, other specified; Y92.89 Other specified places as the place of occurrence of the external cause; Y99.8 Other external cause status
CPT/HCPCS: 36415; 70450; 72125; 73502; 80053; 82947; 85027; 85610; 96374; 96375; 99285; J2405; J3010

== ENCOUNTER 2016-10-19 18:07 | Emergency (ER) | payer MEDICARE ==
[~2016-10-19] VITALS: Ht 154.9 cm; Wt 68.5 kg
[~2016-10-19 18:07] MED LIST changes: +HYDR-2758 PO
[2016-10-19 18:15] VITALS: BP 166/77
--- NOTE | 2016-10-19 19:09 | PHYS DOC ---
Past History Past Medical History: Diabetes, Hypertension Past Surgical History: Cholecystectomy, Hysterectomy, Tubal ligation Smoking: Non-smoker Alcohol Use: None Drug Use: None Adult General Chief Complaint Chief Complaint: DIARRHEA HPI HPI Jeaneth recently had an ischemic stroke during which she had a fall onto her left hip. Stroke left her right leg numb. She has been on chronic pain medication for some time while at an assisted living. However since discharge her primary care doctor has been unable to write her prescriptions for pain medications. She continues to have moderate to severe left leg pain that is worse with movement. She states that she has significant difficulties with ambulation. The pain is not radiating or relieved by any factors she knows of. Review of Systems Review of Systems Constitutional: Denies fever or chills [] Eyes: Denies change in visual acuity, redness, or eye pain [] HENT: Denies nasal congestion or sore throat [] Respiratory: Denies cough or shortness of breath [] Cardiovascular: No additional information not addressed in HPI [] GI: Denies abdominal pain, nausea, vomiting, bloody stools or diarrhea [] : Denies dysuria or hematuria [] Musculoskeletal: Denies back pain or joint pain [] Integument: Denies rash or skin lesions [] Neurologic: Denies headache, focal weakness or sensory changes [] Endocrine: Denies polyuria or polydipsia [] Allergies Allergies Allergies Coded Allergies Type Severity Reaction Last Updated Verified Penicillins Allergy Intermediate rash 09/03/13 Yes Physical Exam Physical Exam Constitutional: Well developed, well nourished, no acute distress, non-toxic appearance. [] HENT: Normocephalic, atraumatic, bilateral external ears normal, oropharynx moist, no oral exudates, nose normal. [] Eyes: PERRLA, EOMI, conjunctiva normal, no discharge. [] Neck: Normal range of motion, no tenderness, supple, no stridor. [] Cardiovascular:Heart rate regular rhythm, no murmur [] Lungs & Thorax: Bilateral breath sounds clear to auscultation [] Abdomen: Bowel sounds normal, soft, no tenderness, no masses, no pulsatile masses. [] Skin: Warm, dry, no erythema, no rash. [] Back: No tenderness, no CVA tenderness. [] Extremities: ROM intact, no edema. Moderate TTP over the L lateral proximal hip with moderate tightness noted in the IT band. Neurologic: Alert and oriented X 3, normal motor function, normal sensory function, no focal deficits noted. [] Psychologic: Affect normal, judgement normal, mood normal. [] Current Patient Data Vital Signs Vital Signs Date Time Temp Pulse Resp B/P (MAP) Pulse Ox O2 Delivery O2 Flow Rate FiO2 10/19/16 18:15 98.1 75 16 98 Room Air EKG EKG [] Radiology/Procedures Radiology/Procedures [] Course & Med Decision Making Course & Med Decision Making Jeaneth's [facility] was reviewed. With respect to narcotic prescriptions Dr. Davis and Dr. Valencia with only 2 who had written her scripts in the past year. Her primary care physician is unable to prescript narcotics. She is currently in the process of finding a new doctor. She was given a script but was advised that in the future chronic pain medications would not be given from the ED. Dragon Disclaimer Dragon Disclaimer This chart was dictated in whole or in part using Voice Recognition software in a busy, high-work load, and often noisy Emergency Department environment. It may contain unintended and wholly unrecognized errors or omissions. Departure Departure: Impression: Primary Impression: Hematoma Additional Impression: Leg pain Disposition: 01 HOME, SELF-CARE Condition: GOOD Referrals: ANISH HOYOS DO (PCP) Patient Instructions: Hematoma Additional Instructions: Jeaneth was seen in the ED for leg pain. No emergency medical condition was found during the history and physical exam. She was given a script for tramadol however was advised to follow up with her primary care doctor as soon as possible for any further pain management. Problem Qualifiers Additional Impression: Leg pain Laterality: left Qualified Codes: M79.605 - Pain in left leg MONA DEGROOT MD Oct 19, 2016 19:09
== END 2016-10-19 19:20 | disposition home or self-care (01) ==
LOC: ER 18:07
DX: M79.605 Pain in left leg (principal); S70.02XA Contusion of left hip, initial encounter; E11.9 Type 2 diabetes mellitus without complications; I10 Essential (primary) hypertension; Z88.0 Allergy status to penicillin; W19.XXXA Unspecified fall, initial encounter; Y93.89 Activity, other specified; Y99.8 Other external cause status; Y92.89 Other specified places as the place of occurrence of the external cause
CPT/HCPCS: 99283

== ENCOUNTER 2019-05-28 12:08 | Inpatient (IN) | payer MEDICARE, MEDICAID ==
[~2019-05-28] VITALS: Ht 154.9 cm; Wt 53.4 kg
[~2019-05-28 12:08] MED LIST changes: +ASPI-621 PO; -ASPI1TAB2 PO; -CARV6.252 PO; +CARV6.2541 PO; +HYDR-2155 PO; -HYDR-2758 PO; -LOSA50TA6 PO; +LOSA50TA86 PO; +METO-239 PO; -METO25TA9 PO; +TRAZ-120 PO; -TRAZ50TA15 PO
[2019-05-28] MEDS ORDERED: IV NORMAL SALINE 1,000ML 1,000 ML IV SCH (12:19)
[2019-05-28] MEDS ORDERED: ONDANSETRON PF 4 MG/2 ML VIAL. IVP ONE ×2 (12:30→14:00)
[2019-05-28 12:58] LABS: BASO # 0.1 x10^3/uL (0.0-0.2); BASO % 1 % (0-3); EOS % 0 % (0-3); HEMATOCRIT 40.1 % (36.0-47.0); HEMOGLOBIN 12.5 g/dL (12.0-15.5); LYMPH # 1.1 x10^3/uL (1.0-4.8); LYMPH % 8 % (24-48); MEAN CORPUSCULAR HEMOGLOBIN 25 pg (25-35); MEAN CORPUSCULAR HGB CONC 31 g/dL (31-37); MEAN CORPUSCULAR VOLUME 81 fL (79-100); MONO # 0.8 x10^3/uL (0.0-1.1); MONO % 6 % (0-9); NEUT # 11.8 x10^3uL (1.8-7.7); NEUT % 86 % (31-73); PLATELET COUNT 533 x10^3/uL (140-400); RED BLOOD COUNT 4.92 x10^6/uL (3.50-5.40); RED CELL DISTRIBUTION WIDTH 19.8 % (11.5-14.5); WHITE BLOOD COUNT 13.7 x10^3/uL (4.0-11.0)
[2019-05-28 12:59] LABS: CALCIUM 9.2 mg/dL (8.5-10.1); CREATININE 2.2 mg/dL (0.6-1.0); GFR 21.8
--- NOTE | 2019-05-28 12:59 | PHYS DOC ---
Past History Past Medical History: Diabetes, Hypertension Past Surgical History: Cholecystectomy, Hysterectomy, Tubal ligation Smoking: Non-smoker Alcohol Use: None Drug Use: None Adult General Chief Complaint Chief Complaint: SHORTNESS OF BREATH HPI HPI Patient is a 73-year-old female who presents via EMS with report that family wants patient to be placed on hospice and nursing facility indicates that they are not able to accomplish that. EMS states that call went out from nursing facility stating that patient was dying. EMS states that upon their arrival luisa ient was awake and alert, in no acute distress. Upon arrival, patient does indicate that she feels weak all over. She denies any chest pain but does admit to some shortness of breath. Family indicates that they did not request that patient be placed on hospice because they feel that patient still is fairly independent.[] Review of Systems Review of Systems Constitutional: Denies fever or chills [] Respiratory: Complains of shortness of breath [] Cardiovascular: No additional information not addressed in HPI [] GI: Denies abdominal pain. Complains of nausea and vomiting without diarrhea [] Integument: Denies rash or skin lesions [] Neurologic: Denies headache, focal weakness or sensory changes [] All other systems were reviewed and found to be within normal limits, except as documented in this note. Current Medications Current Medications Current Medications Medications (Trade) Dose Ordered Sig/Mathew Start Time Stop Time Status Last Admin Dose Admin Ondansetron HCl (Zofran) 4 mg 1X ONCE 05/28/19 12:30 05/28/19 12:31 DC 05/28/19 12:49 4 MG Sodium Chloride 1,000 ml @ 1,000 mls/hr Q1H 05/28/19 12:19 05/28/19 13:18 05/28/19 12:49 1,000 MLS/HR Allergies Allergies Allergies Coded Allergies Type Severity Reaction Last Updated Verified Penicillins Allergy Intermediate rash 09/03/13 Yes Physical Exam Physical Exam Constitutional: Well developed, well nourished, no acute distress, non-toxic appearance. [] HENT: Normocephalic, atraumatic, bilateral external ears normal, oropharynx moist, no oral exudates, nose normal. [] Eyes: PERRLA, EOMI, conjunctiva normal, no discharge. [] Neck: Normal range of motion, no tenderness, supple. [] Cardiovascular: Regular rate and rhythm[] Lungs & Thorax: Bilateral breath sounds clear to auscultation [] Abdomen: Bowel sounds normal, soft, no tenderness. [] Skin: Warm, dry, no erythema, no rash. [] Extremities: No tenderness, no cyanosis, no clubbing, ROM intact. [] Neurologic: Awake and alert, no focal deficits noted. [] EKG EKG [] Radiology/Procedures Radiology/Procedures [] Impressions: PROCEDURE: PORTABLE CHEST 1V EXAM: Chest, single view. HISTORY: Cough. COMPARISON: None. FINDINGS: A frontal view of the chest is obtained. There is no infiltrate, pleural effusion or pneumothorax. The heart is normal in size. IMPRESSION: No acute pulmonary finding. Electronically signed by: Sarah Archer MD (05/28/2019 12:54 PM) [id number] Course & Med Decision Making Course & Med Decision Making Pertinent Labs and Imaging studies reviewed. (See chart for details) [] Dragon Disclaimer Dragon Disclaimer This electronic medical record was generated, in whole or in part, using a voice recognition dictation system. Departure Departure: Impression: Primary Impression: Acute kidney injury Additional Impressions: Dehydration Nausea and vomiting Elevated troponin Disposition: ADMITTED INPATIENT Admitting Physician: Victorino Davis Condition: IMPROVED Referrals: CRISPIN SHULTZ MD (PCP) Problem Qualifiers Additional Impressions: Nausea and vomiting Vomiting type: unspecified Vomiting Intractability: non-intractable Qualified Codes: R11.2 - Nausea with vomiting, unspecified CHARIS ANDREA Jr. DO May 28, 2019 12:59
[2019-05-28 13:05] LABS: ALBUMIN 2.4 g/dL (3.4-5.0); ALBUMIN/GLOBULIN RATIO 0.5 (1.0-1.7); POTASSIUM 3.4 mmol/L (3.5-5.1); TOTAL BILIRUBIN 0.5 mg/dL (0.2-1.0); TOTAL PROTEIN 6.9 g/dL (6.4-8.2)
[2019-05-28 13:26] LABS: INFLUENZA A PATIENT NEGATIVE (NEGATIVE); INFLUENZA B PATIENT NEGATIVE (NEGATIVE)
[2019-05-28 14:05] LABS: FECAL OB PT NEGATIVE (NEG)
--- NOTE | 2019-05-28 14:28 | EKG ---
[address] [address] Test Date: 2019-05-28 Test Time: 13:58:48 Pat Name: CONSTANCE BRENNER Department: Room: Gender: F Pole Framer: : 1945 Requested By: CHARIS ANDREA Order Number: [id number] Reading MD: Measurements Intervals [place] Rate: 89 P: 90 [place]: 126 QRS: 46 QRSD: 70 T: 79 QT: 394 QTc: 480 Interpretive Statements SINUS RHYTHM ATRIAL PREMATURE COMPLEX(ES) PROLONGED QT NO SPECIFIC ECG ABNORMALITIES RI6.01 No previous ECG available for comparison
[2019-05-28 16:58] LABS: BILIRUBIN,URINE NEG (NEG); CLARITY,URINE HAZY; COLOR,URINE YELLOW; GLUCOSE,URINE 250 mg/dL (NEG); NITRITE,URINE NEG (NEG); UROBILINOGEN,URINE 0.2 mg/dL (0.2 mg/dL)
[2019-05-28 16:59] LABS: AMORPHOUS SEDIMENT,UR PRESENT /HPF; BACTERIA,URINE MOD /HPF (0-FEW); GRANULAR CASTS,URINE OCC /HPF; SQUAMOUS EPITHELIAL CELL,UR FEW /LPF; WBC,URINE OCC /HPF (0-4)
--- NOTE | 2019-05-28 18:52 | NUR ---
Patient arrived to unit via EMS. Patients VS obtained and are stable. Patient is Oriented to room and procedures. Patient is calm and cooperative. Patient is given admission teaching. Patient is offered food and drink. Patient is resting in bed at this time. Will continue to monitor.
[2019-05-28 19:04] VITALS: BP 129/76
[2019-05-28] MEDS: IV NORMAL SALINE 1,000ML 1,000 ML IV SCH (20:23)
[2019-05-28] MEDS: ONDANSETRON PF 4 MG/2 ML VIAL. IV PRN (20:23)
[2019-05-28] MEDS ORDERED: VANCOMYCIN 1.25 GM in IV NORMAL SALINE 250ML 250 ML IV ONE (23:30)
[2019-05-28 23:48] VITALS: BP 128/67
[2019-05-29] MEDS ORDERED: VANCOMYCIN PER PHARMACY MC PRN
[2019-05-29] MEDS ORDERED: MEROPENEM 1 GM in IV NORMAL SALINE 100ML 100 ML IV SCH ×2
[2019-05-29] MEDS ORDERED: BETH25TA16 PO ×2 (01:52)
[2019-05-29] MEDS ORDERED: SITA50TA PO (01:52)
[2019-05-29] MEDS ORDERED: BUSP5TAB PO (01:52)
[2019-05-29] MEDS ORDERED: CARV12.547 PO (01:52)
[2019-05-29] MEDS ORDERED: FEXO180T81 PO (01:52)
[2019-05-29] MEDS ORDERED: INSU100I13 SQ (01:52)
[2019-05-29] MEDS ORDERED: APIX2.5T PO (01:52)
[2019-05-29] MEDS ORDERED: METF500T16 PO (01:52)
[2019-05-29] MEDS ORDERED: SERT100T8 PO (01:52)
[2019-05-29] MEDS ORDERED: TRAZ-120 PO (01:52)
[2019-05-29] MEDS ORDERED: LOPE2TAB27 PO (01:52)
[2019-05-29] MEDS ORDERED: CHOL400T36 PO (01:52)
[2019-05-29] MEDS ORDERED: LISI-334 PO (01:52)
[2019-05-29] MEDS ORDERED: SIME80TA14 PO (01:52)
[2019-05-29] MEDS: MEROPENEM 500 MG in IV NORMAL SALINE 50ML 50 ML IV SCH ×3 (01:53→21:35)
[2019-05-29 03:11] VITALS: BP 132/70
--- NOTE | 2019-05-29 03:21 | NUR ---
pt triggered for severe sepsis. sepsis protocol was followed dr contreras. pt has vanco and meropenem ordered per orders.
[2019-05-29 05:32] VITALS: BP 158/79
[2019-05-29] MEDS: IV NORMAL SALINE 1,000ML 1,000 ML IV SCH ×2 (07:05→09:37)
--- NOTE | 2019-05-29 08:07 | NUR ---
Pharmacy Vancomycin Dosing Note S:Consulted to monitor and dose vancomycin started . O:CONSTANCE BRENNER is a 73 year old F with SEVERE Sepsis . Height: 5 feet, 1 inches Weight: 52.0 kg [place] Body Weight: Adjusted Body Weight: Dosing Weight: Other Antibiotics: meropenem 500mg q12h LABS: Last BUN: 44 Last Creatinine: 2.2 Creatinine Clearance: 19 Last WBC: 13.7 Last Procalcitonin: Tmax (past 24 hours): wnl Microbiology: I/O: Drug Levels: Last level: on at Last dose given at 05/28 2329 Vancomycin Dosing: Loading Dose: 1.25gm x1 Dosing Weight: Target Trough: 15-20 A: Based on: P: 1. Begin Vancomycin IV 750mg q48h 2. Follow up level on 06/01 at 2030 3. Pharmacy will continue to monitor, follow and adjust therapy as needed. TATO SOFIA [facility], 05/29/19 0807
[2019-05-29] MEDS ORDERED: HYDROCODONE BIT PO PRN (09:30)
[2019-05-29] MEDS ORDERED: ACETAMINOPHEN PO PRN (09:30)
[2019-05-29] MEDS: ONDANSETRON PF 4 MG/2 ML VIAL. IV PRN (11:43)
[2019-05-29 11:53] VITALS: BP 185/83
[2019-05-29] MEDS ORDERED: LISINOPRIL 20 MG TABLET PO SCH (12:00)
--- NOTE | 2019-05-29 14:48 | HP ---
ADMIT DATE: 05/28/2019 HISTORY OF PRESENT ILLNESS: The patient is a 73-year-old female patient, a resident at [facility], who was brought to the Emergency Room with a complaint of shortness of breath. The patient actually is very confused, does not give much information. She was evaluated in the Emergency Room and her lab work showed marked hypernatremia, hypokalemia and [id number] versus chronic kidney disease. Her white cell count was elevated at 13,700 with thrombocytosis. Urinalysis showed the urine was negative for leukocyte esterase, occasional wbc's, moderate amount of bacteria. Her influenza A and B were negative. Her chest x-ray showed that she has no acute pulmonary finding, although according to the ER physician, his interpretation of the x-rays that she has she was admitted with acute kidney injury, dehydration, nausea and vomiting as well as elevated troponin. She was started on vancomycin as well as meropenem together with IV fluids and was admitted for further evaluation and treatment. PAST MEDICAL HISTORY: Significant for: 1. 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 Poor mobility. 2. Generalized muscle weakness, cognitive communication deficit. 3. Acute posthemorrhagic anemia, type 2 diabetes mellitus without complication, hyperlipidemia, major depressive disorder. PAST SURGICAL HISTORY: Unobtainable. FAMILY HISTORY: Noncontributory. SOCIAL HISTORY: She apparently a resident at [facility] since 10/28/2018. ALLERGIES: SHE IS ALLERGIC TO PENICILLIN. MEDICATIONS: She is currently on following medications: She is on fexofenadine 180 mg once a day, Urecholine 25 mg at bedtime. She is on bethanechol 25 mg daily, apixaban 2.5 mg twice a day, atorvastatin calcium 20 mg at bedtime, carvedilol 12.5 mg twice a day, lisinopril 20 mg daily, acetaminophen 650 mg every 8 hours, sertraline 100 mg daily, trazodone 25 mg at bedtime, buspirone 5 mg twice a day, loperamide 2 mg every 6 hours, simethicone 80 mg 3 times a day, metformin 500 mg twice a day, sitagliptin phosphate for Januvia 50 mg once a day, Lantus insulin 10 units at bedtime, cholecalciferol, vitamin D3 2000 units daily. She is also on hydrocodone/APAP 5/325 one tablet every 6 hours as needed for pain. REVIEW OF SYSTEMS: As per history of present illness. PHYSICAL EXAMINATION: GENERAL: On arrival to the Emergency Room, the patient was tachypneic, hypertensive, but there was no pallor, jaundice, cyanosis or thyromegaly. No jugular venous distention. No limb edema. VITAL SIGNS: Her heart rate on arrival was 83, blood pressure was 88/57, temperature was 97.7, respiratory rate was 38 and oxygen saturation was 87%. HEAD, EYES, EARS, NOSE AND THROAT: Showed normocephalic, atraumatic. NECK: Supple. HEART: Showed normal first and second heart sounds. No gallop or murmur. CHEST: Clear to auscultation. No crepitation or rhonchi. ABDOMEN: Distended, soft, nontender. No guarding or rigidity. No organomegaly. All hernial orifice intact. Bowel sounds normal. NEUROLOGIC: She is awake, alert, but all her cranial nerves are grossly intact. She has right sided hemiplegia with fixed flexion contraction of the right upper extremity. LABORATORY DATA: Her lab work on arrival showed a white cell count of 13,700, hemoglobin 12.5, hematocrit 40, MCV 81 and platelet count of 533,000 with normal manual differential. Her chemistry showed a serum sodium of 148, potassium 3.4, chloride 109, bicarbonate 21, anion gap of 18, BUN 44, creatinine 2.2, estimated GFR was 22 mL per minute. Her glucose was 219, calcium was 9.2. Total bilirubin, AST, ALT, alkaline phosphatase were normal. Total protein was 6.9, albumin was 2.4. Her urinalysis showed the urine was yellow, hazy with a pH of 6, specific gravity of 1.025, she has large amount of protein, moderate amount of glucose, small amount of ketones, large amount of blood. The urine was negative for nitrite as well as leukocyte esterase. There were 6-10 rbc's, occasional wbc's, and moderate amount of bacteria. Her stool for occult blood was negative and her influenza A and B were negative. Her chest x-ray showed that there is no infiltrate, pleural effusion, or pneumothorax. The heart is normal in size. Currently, the patient has also lactic acid high at 2.1 and according to the ER physician we felt that the patient has pneumonia and therefore she was started on IV fluid as well as IV vancomycin and meropenem as SHE IS ALLERGIC TO PENICILLIN. ASSESSMENT AND PLAN: In summary, this is a 73-year-old female patient who was admitted with probably dehydration and acute kidney injury. I am not sure about whether she already has an infection as her urinalysis was unremarkable. Chest x-ray seemed to be clear. I will definitely discontinue her lisinopril for now. We will obviously repeat her lab work and once I have the results, I will change her IV fluid likely with some D5W with potassium. NEO BERNAL MD DR: RADHA/nicho JOB#: [id number] / [id number]
[2019-05-29 14:57] LABS: BASO # 0.1 x10^3/uL (0.0-0.2); BASO % 1 % (0-3); CALCIUM 8.1 mg/dL (8.5-10.1); CREATININE 2.3 mg/dL (0.6-1.0); EOS % 0 % (0-3); GFR 20.7; HEMATOCRIT 33.6 % (36.0-47.0); HEMOGLOBIN 10.2 g/dL (12.0-15.5); LYMPH # 1.6 x10^3/uL (1.0-4.8); LYMPH % 11 % (24-48); MEAN CORPUSCULAR HEMOGLOBIN 25 pg (25-35); MEAN CORPUSCULAR HGB CONC 30 g/dL (31-37); MEAN CORPUSCULAR VOLUME 84 fL (79-100); MONO # 0.6 x10^3/uL (0.0-1.1); MONO % 5 % (0-9); NEUT # 11.8 x10^3uL (1.8-7.7); NEUT % 83 % (31-73); PLATELET COUNT 392 x10^3/uL (140-400); POTASSIUM 3.4 mmol/L (3.5-5.1); RED BLOOD COUNT 4.02 x10^6/uL (3.50-5.40); RED CELL DISTRIBUTION WIDTH 19.8 % (11.5-14.5); WHITE BLOOD COUNT 14.1 x10^3/uL (4.0-11.0)
[2019-05-29 15:02] LABS: ALBUMIN 2.1 g/dL (3.4-5.0); ALBUMIN/GLOBULIN RATIO 0.5 (1.0-1.7); TOTAL BILIRUBIN 0.3 mg/dL (0.2-1.0); TOTAL PROTEIN 6.1 g/dL (6.4-8.2)
[2019-05-29] MEDS: POTASSIUM CL 20MEQ IN D5W 1,000 ML IV SCH (15:15)
[2019-05-29 15:50] VITALS: BP 207/77
[2019-05-29] MEDS: CARVEDILOL 12.5 MG TABLET PO SCH (16:34)
[2019-05-29] MEDS: amLODIPine BESYLATE 10 MG TABLET PO SCH (17:38)
[2019-05-29 19:53] VITALS: BP 135/72
[2019-05-29] MEDS ORDERED: BETHANECHOL CHLORIDE 25 MG TABLET PO SCH (21:00)
[2019-05-29] MEDS ORDERED: busPIRone 5 MG TABLET. PO SCH (21:00)
[2019-05-29] MEDS ORDERED: NON FORMULARY ITEM (Insulin Glargine,Hum.rec.anlog (Lantus Solostar) 10 UNIT) SQ SCH (21:00)
[2019-05-29] MEDS ORDERED: metFORMIN 500 MG TABLET PO SCH (21:00)
[2019-05-29] MEDS ORDERED: traZODone 50 MG TABLET. PO SCH (21:00)
[2019-05-29] MEDS: APIXABAN 2.5 MG TABLET PO SCH (21:34)
[2019-05-29] MEDS: LACTOBACILLUS RHAMNOSUS GG 1 CAPSULE. PO SCH (21:34)
[2019-05-29] MEDS: HYDROcodone/APAP 5/325MG 1 TAB TABLET PO PRN (21:34)
[2019-05-29] MEDS: INSULIN GLARGINE SYRINGE. SQ SCH (21:38)
[2019-05-30] MEDS: POTASSIUM CL 20MEQ IN D5W 1,000 ML IV SCH ×3 (01:15→21:15)
--- NOTE | 2019-05-30 02:29 | PN ---
DATE: 05/29/2019 SUBJECTIVE: The patient is a 73-year-old female patient who was admitted yesterday through the Emergency Room with acute kidney injury and marked dehydration. She also was started on IV antibiotic. According to the ER physician, he told her that she has pneumonia, although I am not really sure that is the case there. She has also elevated troponin. She was started on IV fluid as well as IV antibiotic in the form of vancomycin and meropenem as well as unfortunately, her serum sodium continued to be high and her potassium continued to be low. She is somewhat acidotic and kidney function has actually if anything worsened. Her creatinine went up from 2.2-2.4 with a baseline of 1.4 and therefore, I discontinued her lisinopril, discontinued all her SSRIs and buspirone and discontinued vancomycin and switched her to Zyvox and meropenem. PHYSICAL EXAMINATION: GENERAL: When I saw her today, she looked well and was clearly in no apparent respiratory distress, pale, but not jaundiced, cyanosed, or thyromegaly. No jugular venous distension. No limb edema. VITAL SIGNS: Her heart rate was 103, blood pressure was 185/83, temperature was 98, respiratory rate 20, and oxygen saturation was 99% on 2 liters of oxygen. HEAD, EYES, EARS, NOSE AND THROAT: Showed normocephalic, atraumatic. NECK: Supple. HEART: Showed normal first and second heart sounds. No gallop or murmur. CHEST: Clear to auscultation. No crepitation or rhonchi. ABDOMEN: Distended, soft, nontender. NEUROLOGIC: She is awake, alert, somewhat confused. She has right-sided hemiplegia. Her intake over the last 24 hours was incompletely recorded. LABORATORY DATA: Her lab work this afternoon showed a serum sodium 146, potassium 3.4, chloride 111, bicarbonate 17, anion gap of 18, BUN 47, creatinine 2.3, estimated GFR was 20 mL per minute. Her glucose was 184, calcium was 8.1. Total bilirubin, AST, ALT, alkaline phosphatase were normal. Total protein was 6.1, albumin was 2.1. Her white cell count was 14,000, hemoglobin 10, hematocrit 33, MCV 84 and platelet count 392,000. ASSESSMENT: 1. Acute kidney injury. If anything, the patient is worsening, her creatinine has risen up to 2.3 from 2.2 and a baseline of 1.4. 2. Hyponatremia, hyperkalemia, metabolic acidosis. I discontinued her lisinopril and vancomycin. I discontinued the SSRIs as well as buspirone. I will change the IV antibiotic to linezolid 600 mg IV 12 hourly as well as change the IV fluid to D5 with 20 mEq of potassium chloride and we will repeat all her lab work tomorrow and decide the further management accordingly. NEO BERNAL MD DR: RADHA/nicho JOB#: [id number] / [id number]
[2019-05-30] MEDS: HYDROcodone/APAP 5/325MG 1 TAB TABLET PO PRN (04:06)
[2019-05-30 05:57] VITALS: BP 164/74
[2019-05-30 06:30] LABS: HEMATOCRIT 27.8 % (36.0-47.0); HEMOGLOBIN 8.7 g/dL (12.0-15.5); RED BLOOD COUNT 3.39 x10^6/uL (3.50-5.40); RED CELL DISTRIBUTION WIDTH 18.8 % (11.5-14.5); WHITE BLOOD COUNT 9.7 x10^3/uL (4.0-11.0)
[2019-05-30 06:46] LABS: ALBUMIN 1.7 g/dL (3.4-5.0); ALBUMIN/GLOBULIN RATIO 0.5 (1.0-1.7); CALCIUM 7.6 mg/dL (8.5-10.1); GFR 24.3; TOTAL BILIRUBIN 0.3 mg/dL (0.2-1.0); TOTAL PROTEIN 5.1 g/dL (6.4-8.2)
--- NOTE | 2019-05-30 07:55 | NUR ---
Pt K+ 3.0 this AM, notified of results. Will give 40 mEq K+ now, will give 40 mEq at 0900, recheck K+ at 1200. Will monitor and assess as necessary.
[2019-05-30] MEDS ORDERED: POTASSIUM CHLORIDE 20 MEQ TABLET.ER. PO ONE ×2 (08:00→09:00)
[2019-05-30] MEDS: MEROPENEM 500 MG in IV NORMAL SALINE 50ML 50 ML IV SCH ×2 (08:08→19:51)
[2019-05-30] MEDS: amLODIPine BESYLATE 10 MG TABLET PO SCH (08:09)
[2019-05-30] MEDS: APIXABAN 2.5 MG TABLET PO SCH ×2 (08:10→09:00)
[2019-05-30] MEDS: CARVEDILOL 12.5 MG TABLET PO SCH (08:10)
[2019-05-30] MEDS: LACTOBACILLUS RHAMNOSUS GG 1 CAPSULE. PO SCH (08:10)
[2019-05-30] MEDS ORDERED: CETIRIZINE HCL 10 MG TABLET PO SCH (09:00)
[2019-05-30] MEDS ORDERED: LINAGLIPTIN 5 MG TABLET PO SCH (09:00)
[2019-05-30] MEDS ORDERED: BETHANECHOL CHLORIDE 25 MG TABLET PO SCH (09:00)
[2019-05-30] MEDS ORDERED: ATORVASTATIN CALCIUM 20 MG TABLET PO SCH (09:00)
[2019-05-30] MEDS ORDERED: SERTRALINE 100 MG TABLET. PO SCH (09:00)
[2019-05-30] MEDS ORDERED: NON FORMULARY ITEM (Sitagliptin Phosphate (Januvia) 1 TAB) PO SCH (09:00)
[2019-05-30] MEDS ORDERED: LISINOPRIL 20 MG TABLET PO SCH (09:00)
[2019-05-30] MEDS ORDERED: NON FORMULARY ITEM (Fexofenadine Hcl (Allegra Allergy) 1 TAB) PO SCH (09:00)
[2019-05-30] MEDS ORDERED: CHOLECALCIFEROL (VITAMIN D3) 1,000 UNIT TABLET PO SCH (09:00)
[2019-05-30] MEDS ORDERED: CHOLECALCIFEROL 2000 UNIT PO SCH (09:00)
--- NOTE | 2019-05-30 09:17 | NUR ---
Withheld morning dose of Eliquis for HGB 3.39. Will collect Occult blood.
[2019-05-30] MEDS: ONDANSETRON PF 4 MG/2 ML VIAL. IVP PRN ×3 (10:14→19:49)
[2019-05-30 10:16] VITALS: BP 165/75
[2019-05-30] MEDS ORDERED: DEXTROSE 50% 25 GM / 50ML DISP.SYRIN. IV PRN ×2 (11:30→16:45)
[2019-05-30] MEDS ORDERED: INSULIN LISPRO 300 UNITS/3 ML VIAL. SQ SCH (12:00)
--- NOTE | 2019-05-30 12:07 | NUR ---
Pt Blood sugar 310 at 1130, notified, Moderate Humolog Sliding Scale ordered per , will continue to assess and monitor as necessary.
[2019-05-30 12:34] LABS: ALBUMIN 1.9 g/dL (3.4-5.0); ALBUMIN/GLOBULIN RATIO 0.5 (1.0-1.7); GFR 24.3; TOTAL BILIRUBIN 0.3 mg/dL (0.2-1.0); TOTAL PROTEIN 5.6 g/dL (6.4-8.2)
[2019-05-30 13:38] LABS: POTASSIUM 2.9 mmol/L (3.5-5.1)
[2019-05-30 13:44] LABS: LACTATE DEHYDROGENASE 251 U/L (81-234); LIPASE 295 U/L (73-393)
[2019-05-30] MEDS: POTASSIUM CL 40MEQ D5-0.45NACL 1,000 ML IV SCH (14:00)
[2019-05-30 15:48] VITALS: BP 169/76
--- NOTE | 2019-05-30 16:47 | RAD ---
EXAM: CHEST AP ONLY INDICATION: Worsening pneumonia. TECHNIQUE: Single view COMPARISON: 05/28/2019 chest x-ray FINDINGS: The heart size is normal. The great vessels show aortic tortuosity.. There is no hilar or mediastinal mass. The lungs are clear. There is no pleural effusion or pneumothorax. Bones show old healed proximal left humeral fracture. IMPRESSION: No active cardiopulmonary disease. Electronically signed by: Cruzito Rivas MD (05/30/2019 4:44 PM) [id number]
--- NOTE | 2019-05-30 16:49 | NUR ---
Pt complaint of N/V throughout shift. Gave 4mg Zofran IVP, PRN as needed. K+at 1230-2.9, aware of lab value. Discontinued all oral medications for time being per 's orders. Switched IV fluids to 40 mEq D5 1/2 NS. Will recheck K+ at 2100 tonight.
--- NOTE | 2019-05-30 17:29 | NUR ---
Pt unable to eat or drink fluids. Accu checks ordered Q6hrs w/ low dose sliding scale per Dr. Davis.
[2019-05-30 17:46] LABS: FECAL OB PT NEGATIVE (NEG)
[2019-05-30] MEDS: INSULIN LISPRO 300 UNITS/3 ML VIAL. SQ SCH ×2 (17:50→20:59)
[2019-05-30 18:31] VITALS: BP 174/80
[2019-05-30] MEDS: INSULIN GLARGINE SYRINGE. SQ SCH (19:56)
[2019-05-30] MEDS: MORPHINE SULFATE 2 MG/ML DISP.SYRIN. IV PRN (19:58)
[2019-05-30 20:00] VITALS: BP 191/81
--- NOTE | 2019-05-30 20:14 | PN ---
DATE: 05/30/2019 SUBJECTIVE: The patient is resting slightly propped up in bed, in no apparent distress. She continued to state that she is not feeling well. She has been nauseous and vomited multiple times; however, she denied any abdominal pain. PHYSICAL EXAMINATION: GENERAL: When I examined her this afternoon, she looked well and was clearly in no apparent respiratory distress. She was pale, but no jaundice, cyanosis or thyromegaly. No jugular venous distention. No limb edema. VITAL SIGNS: Her heart rate was 57, blood pressure was 165/75, temperature 97.9, respiratory rate was 18 and oxygen saturation was 97% on room air. HEAD, EYES, EARS, NOSE AND THROAT: Showed normocephalic, atraumatic. NECK: Supple. HEART: Showed normal first and second heart sounds. No gallop or murmur. CHEST: Shows central trachea, equal bilateral expansion, air entry, vesicular breath sounds. No crepitation or rhonchi. ABDOMEN: Soft, nontender. No guarding or rigidity. No organomegaly. All hernial orifices intact. Bowel sounds normal. NEUROLOGIC: She was awake, alert, responding appropriately. All cranial nerves are intact. She moves extremities without difficulty. She has right-sided hemiplegia. She is mostly bedbound. ASSESSMENT: Acute kidney injury. The patient's creatinine is improving from 2.3 to 2. Hyponatremia, hyperkalemia and metabolic acidosis. Her anion gap has improved from 18 to 9. She continued to be hypokalemic. PLAN: My plan is to probably this as I do not have any clear-cut evidence that she has pneumonia, I will discontinue the IV antibiotic for now and I would repeat a chest x-ray and if there is no evidence of any infiltrate, I will discontinue linezolid and meropenem. I have changed IV fluid to D5 half normal with 40 mEq of potassium chloride. Meanwhile, we will continue with the IV fluid and antiemetic. NEO BERNAL MD DR: RADHA/nicho JOB#: [id number] / [id number]
[2019-05-30] MEDS ORDERED: VANCOMYCIN 750 MG in IV NORMAL SALINE 250ML 250 ML IV SCH (21:00)
[2019-05-30 21:47] LABS: ALBUMIN/GLOBULIN RATIO 0.5 (1.0-1.7); CALCIUM 8.2 mg/dL (8.5-10.1); CREATININE 1.9 mg/dL (0.6-1.0); GFR 25.8; POTASSIUM 3.1 mmol/L (3.5-5.1); TOTAL BILIRUBIN 0.2 mg/dL (0.2-1.0); TOTAL PROTEIN 5.9 g/dL (6.4-8.2)
[2019-05-30 22:43] VITALS: BP 140/67
[2019-05-30] MEDS: POTASSIUM CHLORIDE 10MEQ 100 ML IV SCH (23:00)
[2019-05-31] MEDS: POTASSIUM CHLORIDE 10MEQ 100 ML IV SCH ×3 (01:01→05:34)
[2019-05-31] MEDS: MORPHINE SULFATE 2 MG/ML DISP.SYRIN. IV PRN (01:02)
[2019-05-31] MEDS: POTASSIUM CL 40MEQ D5-0.45NACL 1,000 ML IV SCH ×2 (04:02→10:00)
[2019-05-31] MEDS: INSULIN LISPRO 300 UNITS/3 ML VIAL. SQ SCH ×3 (05:31→16:59)
[2019-05-31 06:17] VITALS: BP 167/89
[2019-05-31 07:06] LABS: HEMATOCRIT 30.4 % (36.0-47.0); HEMOGLOBIN 9.6 g/dL (12.0-15.5); RED BLOOD COUNT 3.71 x10^6/uL (3.50-5.40); RED CELL DISTRIBUTION WIDTH 19.3 % (11.5-14.5); WHITE BLOOD COUNT 8.3 x10^3/uL (4.0-11.0)
[2019-05-31 07:21] LABS: ALBUMIN 1.7 g/dL (3.4-5.0); ALBUMIN/GLOBULIN RATIO 0.5 (1.0-1.7); CALCIUM 7.8 mg/dL (8.5-10.1); CREATININE 1.7 mg/dL (0.6-1.0); GFR 29.3; POTASSIUM 3.9 mmol/L (3.5-5.1); TOTAL BILIRUBIN 0.2 mg/dL (0.2-1.0); TOTAL PROTEIN 5.2 g/dL (6.4-8.2)
[2019-05-31 10:42] VITALS: BP 131/68
[2019-05-31 14:39] VITALS: BP 110/53
--- NOTE | 2019-05-31 18:38 | NUR ---
NURSING NOTE PT WAS IN HER BED THIS AM UPON ASSESSMENT AND MEDICATION ADMINISTRATION. PT WAS A&O TO SELF. PT IS DOING BETTER TODAY, NO VOMITING THIS SHIFT. PT EATING AND DRINKING. IV FLUIDS WERE DISCONTINUED. PLAN IS TO DISCHARGE BACK TO [facility] TOMORROW IF STILL DOING BETTER. WILL CONTINUE TO MONITOR. HERMAN WEBSTER.
[2019-05-31 19:29] VITALS: BP 121/68
[2019-05-31] MEDS: INSULIN GLARGINE SYRINGE. SQ SCH (22:17)
[2019-05-31 22:19] VITALS: BP 125/73
--- NOTE | 2019-06-01 00:36 | PN ---
DATE: SUBJECTIVE: The patient is resting slightly propped up in bed, awake, alert, has had no more nausea or vomiting. She is eating and drinking. She has participated in physical therapy. She is doing extremely well. Her kidney function is steadily improving. Her creatinine came down from 2.3 down to 1.7. PHYSICAL EXAMINATION: GENERAL: When I examined her this afternoon, she looked pale, but no jaundice, cyanosis or thyromegaly. No jugular venous distention. No limb edema. VITAL SIGNS: Her heart rate was 80, blood pressure was 110/53, temperature 98, respiratory rate was 20, and oxygen saturation was 98%. HEAD, EYES, EARS, NOSE AND THROAT: Normocephalic, atraumatic. NECK: Supple. HEART: Showed normal first and second heart sounds. No gallop, rub or murmur. CHEST: Clear to auscultation. No crepitation or rhonchi. ABDOMEN: Distended, soft, nontender. NEUROLOGIC: She is awake, alert, responding appropriately. All cranial nerves are intact. She moves extremities without difficulty. She does have right sided hemiparesis, but she is able to walk with a walker. LABORATORY DATA: Her lab work this morning showed a serum sodium 138, potassium 3.9, chloride 107, bicarbonate 24, anion gap of 7, BUN 23, creatinine 1.7, estimated GFR was 29 mL per minute. Her glucose 181, calcium was 7.8. Total bilirubin, AST, ALT, alkaline phosphatase were normal. Total protein was 5.2, albumin was 1.7. White cell count was 8300, hemoglobin 9.6, hematocrit 30, MCV 82, and platelet count 338,000. ASSESSMENT 1. Acute kidney injury, improving. 2. Hyponatremia, resolved. 3. Hyperkalemia, metabolic acidosis, resolved. PLAN: To continue with IV fluid. Continue with physical and occupational therapy. She will be discharged back to [facility] tomorrow. NEO BERNAL MD DR: RADHA/nicho JOB#: [id number] / [id number]
[2019-06-01] MEDS: ONDANSETRON PF 4 MG/2 ML VIAL. IVP PRN (00:43)
[2019-06-01 05:28] VITALS: BP 144/76
[2019-06-01] MEDS: MORPHINE SULFATE 2 MG/ML DISP.SYRIN. IV PRN (07:05)
[2019-06-01 07:09] LABS: CALCIUM 7.2 mg/dL (8.5-10.1); CREATININE 1.6 mg/dL (0.6-1.0); GFR 31.4
[2019-06-01] MEDS: INSULIN LISPRO 300 UNITS/3 ML VIAL. SQ SCH ×3 (07:30→11:58)
[2019-06-01 11:43] VITALS: BP 117/76
--- NOTE | 2019-06-01 13:56 | DISCH ---
DISCHARGE ORDERS DISCHARGE DATE: Jun 01, 2019 FINAL DIAGNOSIS acute on chronic kidney injury hypokalemia CONDITION AT DISCHARGE: Stable Code Status: Full SNF STAY <30 DAYS: Yes POST DISCHARGE ORDERS: ACTIVITY ORDERS: Activity as tolerated WEIGHT BEARING STATUS: As tolerated DIET AFTER DISCHARGE: Regular WOUND/INCISION CARE: No wound care needed CHECKS AFTER DISCHARGE: CHECKS AFTER DISCHARGE: Check blood press - daily, Check blood sugar, ac/hs FOLLOW-UP: FFOLLOW-UP WITH: PCP WITH IN 7-10 DAYS TREATMENT/EQUIPMENT ORDERS: ADAPTIVE EQUIPMENT NEEDED: None DISCHARGE MEDICATIONS: Home Meds Active Scripts [Hydrocodone Bit/Acetaminophen] 1 TAB TABLET No Conflict Check, 1 TAB PO PRN Q6HRS PRN for PAIN, #30 TAB Prov:ANISH HOYOS DO 07/23/16 Acetaminophen (ACETAMINOPHEN) 650 Mg/20.3 Ml Solution, 650 MG PO Q8HRS, #60 TAB- CAP Prov:ANISH HOYOS DO 07/23/16 Atorvastatin Calcium (ATORVASTATIN CALCIUM) 20 Mg Tablet, 1 TAB PO DAILY, #30 TAB 5 Refills Prov:ANISH HOYOS DO 07/23/16 Reported Medications Cholecalciferol (Vitamin D3) (VITAMIN D) 400 Unit Tablet, 2000 UNIT PO DAILY for supplement, TAB 05/29/19 Trazodone Hcl (TRAZODONE HCL) 50 Mg Tablet, 25 MG PO HS for restlessness, TAB 05/29/19 Simethicone (SIMETHICONE) 80 Mg Tab.chew, 160 MG PO TID for GERD, TAB.CHEW 05/29/19 Sertraline Hcl (SERTRALINE HCL) 100 Mg Tablet, 150 MG PO DAILY for ANTI- DEPRESSANT, TAB 0 Refills 05/29/19 Metformin Hcl (METFORMIN HCL) 500 Mg Tablet, 1 TAB PO BID for type 2 diabetes, #60 TAB 3 Refills 20 Loperamide Hcl (LOPERAMIDE) 2 Mg Tablet, 1 TAB PO PRN Q6HRS PRN for DIARRHEA for 30 Days, TAB 0 Refills 20 Lisinopril (LISINOPRIL) 20 Mg Tablet, 1 TAB PO DAILY for hypertention, #30 TAB 5 Refills 20 Insulin Glargine,Hum.rec.anlog (LANTUS SOLOSTAR) 100 Unit/1 Ml Insuln.pen, 10 UNIT SQ QHS for Diabetes, #15 ML 3 Refills 05/29/19 Sitagliptin Phosphate (JANUVIA) 50 Mg Tablet, 1 TAB PO DAILY for type 2 DM, #30 TAB 5 Refills 05/29/19 Apixaban (ELIQUIS) 2.5 Mg Tablet, 2.5 MG PO BID for hyperlipidemia, TAB 05/29/19 Carvedilol (CARVEDILOL ) 12.5 Mg Tablet, 12.5 MG PO BIDWMEALS for CARDIAC, TAB 05/29/19 Buspirone Hcl (BUSPIRONE HCL) 5 Mg Tablet, 1 TAB PO BID for agitation, #60 TAB 2 Refills 05/29/19 Bethanechol Chloride (URECHOLINE) 25 Mg Tablet, 1 TAB PO DAILY for chronic kideny disease for 30 Days, #30 TAB 0 Refills 05/29/19 Bethanechol Chloride (URECHOLINE) 25 Mg Tablet, 1 TAB PO HS for chronic kidney disease for 30 Days, #30 TAB 0 Refills 05/29/19 Fexofenadine Hcl (JAYLEN ALLERGY) 180 Mg Tablet, 1 TAB PO DAILY for allergy symptoms for 14 Days, #14 TAB 0 Refills 05/29/19 NEO BERNAL MD Jun 01, 2019 13:56
--- NOTE | 2019-06-01 14:15 | DS ---
DATE OF DISCHARGE: 05/28/2019 HOSPITAL COURSE: The patient is a 73-year-old female patient, a resident at [facility], who was brought to the Emergency Room with complaint of shortness of breath. She was evaluated in the Emergency Room. Her lab work showed that she has marked hypernatremia and hypokalemia and acute on chronic kidney injury. She was treated with IV fluid and potassium replacement and she did actually very well. Her serum sodium came down from 48 to 140 and her potassium came up from 2.9 to 4. Her creatinine came back to the baseline from 2.3 to 1.6. The patient herself is more awake, alert, responding appropriately. She is eating and drinking, has had no further episodes of nausea, vomiting, has been up and about walking with physical therapy, and as she is back to her baseline, a decision was made to discharge her back to [facility]. PHYSICAL EXAMINATION: GENERAL: When I saw her today, she looked well and was clearly in no apparent respiratory distress. No pallor, jaundice, cyanosis or thyromegaly. No jugular venous distention. No lower limb edema. VITAL SIGNS: Her heart rate was 82, blood pressure was 117/76, temperature was 97.8, respiratory rate was 18 and oxygen saturation was 97% on 3 liters of oxygen. The rest of clinical exam is stable. She does have severe right sided hemiparesis. LABORATORY DATA: As of this morning, her serum sodium was 140, potassium 4, chloride 110, bicarbonate 22, anion gap of 8, BUN 26, creatinine 1.6, estimated GFR was 31 mL per minute. Her glucose 131 and calcium was 7.2. White cell count was 8300, hemoglobin 10, hematocrit 30, MCV 82 and platelet count 338,000. Her urine culture showed no growth and her blood cultures both negative after 3 days. DISCHARGE MEDICATIONS: She was discharged back to [facility] to continue on Tylenol 650 mg every 8 hours, apixaban 2.5 mg twice a day, atorvastatin calcium 20 mg at bedtime, bethanechol for Urecholine 25 mg at bedtime, bethanechol chloride 25 mg daily, buspirone 5 mg twice a day, carvedilol 12.5 mg twice a day, vitamin D3 at 2000 international unit once a day, fexofenadine for Sisi 180 mg once a day, hydrocodone/APAP one tablet every 6 hours, Lantus insulin 10 units at bedtime, lisinopril 20 mg once a day, loperamide 2 mg every 6 hours as needed, metformin 500 mg b.i.d., sertraline 150 mg once a day, simethicone 160 mg 3 times a day, sitagliptin phosphate for Januvia 50 mg once a day and trazodone 25 mg at bedtime. FINAL DISCHARGE DIAGNOSES: [id number] kidney injury, resolved, hypernatremia, resolved. Hypokalemia. Metabolic acidosis, resolved. She has multiple other medical problems including: A. 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 B. Generalized muscle weakness. C. Cognitive communication deficit. D. Acute posthemorrhagic anemia. E. Type 2 diabetes mellitus without complication. F. Hyperlipidemia. G. Major depressive disorder. NEO BERNAL MD DR: RADHA/nicho JOB#: [id number] / [id number]
[2019-06-01 15:08] VITALS: BP 149/82
--- NOTE | 2019-06-01 15:51 | NUR ---
Discharge Note: CONSTANCE BRENNER [address] Discharge instructions and discharge home medications reviewed with Patient and a copy given. All questions have been answered and understanding verbalized. [facility] by [facility] employee. Report given to Gaby HERNANDEZ RN.
== END 2019-06-01 15:55 | DRG 64 ==
LOC: ER 12:08 → 1 SOUTH 18:04 → ER 18:45
PROVIDERS: ADMIT Internal Medicine; ATTEND Internal Medicine
DX: I63.512 Cerebral infarction due to unspecified occlusion or stenosis of left middle cerebral artery (principal); G93.41 Metabolic encephalopathy; N17.9 Acute kidney failure, unspecified; G81.91 Hemiplegia, unspecified affecting right dominant side; E87.1 Hypo-osmolality and hyponatremia; E87.2 Acidosis; D62 Acute posthemorrhagic anemia; E87.0 Hyperosmolality and hypernatremia; E86.0 Dehydration; E11.22 Type 2 diabetes mellitus with diabetic chronic kidney disease; E78.5 Hyperlipidemia, unspecified; R41.841 Cognitive communication deficit; E87.5 Hyperkalemia; E87.6 Hypokalemia; F32.9 Major depressive disorder, single episode, unspecified; I12.9 Hypertensive chronic kidney disease with stage 1 through stage 4 chronic kidney disease, or unspecified chronic kidney disease; N18.9 Chronic kidney disease, unspecified; Z51.5 Encounter for palliative care; Z86.73 Personal history of transient ischemic attack (TIA), and cerebral infarction without residual deficits; Z90.710 Acquired absence of both cervix and uterus; Z90.49 Acquired absence of other specified parts of digestive tract; Z98.51 Tubal ligation status; Z88.0 Allergy status to penicillin
CPT/HCPCS: 36415; 71045; 80048; 80053; 81001; 82274; 82947; 83605; 83615; 83690; 83735; 83880; 84484; 85025; 85027; 87040; 87086; 87804; 93005; 96361; 96374; 96376; J1815; J2020; J2185; J2270; J2405; J3370; J3480; J7042; J7050; 97530; 97535; 99285-25; J7030

== ENCOUNTER 2019-06-15 21:45 | Emergency (ER) | payer MEDICARE, MEDICAID ==
[~2019-06-15] VITALS: Ht 154.9 cm; Wt 53.6 kg
[~2019-06-15 21:45] MED LIST changes: +APIX2.5T PO; +BETH25TA16 PO; +BUSP5TAB PO; +CARV12.547 PO; +CHOL400T36 PO; +FEXO180T81 PO; +LISI-334 PO; +LOPE2TAB27 PO; +METF500T16 PO; +SERT100T8 PO; +SIME80TA14 PO; +SITA50TA PO
[2019-06-15 22:25] LABS: BASO % 1 % (0-3); EOS # 0.1 x10^3/uL (0.0-0.7); EOS % 1 % (0-3); HEMATOCRIT 27.6 % (36.0-47.0); HEMOGLOBIN 8.6 g/dL (12.0-15.5); LYMPH # 1.4 x10^3/uL (1.0-4.8); LYMPH % 26 % (24-48); MEAN CORPUSCULAR HEMOGLOBIN 26 pg (25-35); MEAN CORPUSCULAR HGB CONC 31 g/dL (31-37); MEAN CORPUSCULAR VOLUME 83 fL (79-100); MONO # 0.6 x10^3/uL (0.0-1.1); MONO % 11 % (0-9); NEUT # 3.4 x10^3uL (1.8-7.7); NEUT % 61 % (31-73); PLATELET COUNT 345 x10^3/uL (140-400); RED BLOOD COUNT 3.33 x10^6/uL (3.50-5.40); RED CELL DISTRIBUTION WIDTH 18.1 % (11.5-14.5); WHITE BLOOD COUNT 5.5 x10^3/uL (4.0-11.0)
--- NOTE | 2019-06-15 22:26 | PHYS DOC ---
Past History Past Medical History: Anemia, Anxiety, CVA, Depression, Diabetes, GERD, High Cholesterol, Hypertension, Renal Disease, Renal Failure, Stroke, UTI Additional Past Medical Histor: R hemipelegia Past Surgical History: Cholecystectomy, Hysterectomy, Tubal ligation Smoking: Non-smoker Alcohol Use: None Drug Use: None Adult General Chief Complaint Chief Complaint: KNEE INJURY HPI HPI 73-year-old female presents with right knee pain. The patient does not remember what happened. She lives at a care facility. She was reported to have fallen and the swelling has been getting worse. The patient is on this. She had ischemic stroke in the past. She does say that it is painful, but says that she can walk. She denies any other complaints to me. Review of Systems Review of Systems Constitutional: Denies fever or chills [] Eyes: Denies change in visual acuity, redness, or eye pain [] HENT: Denies nasal congestion or sore throat [] Respiratory: Denies cough or shortness of breath [] Cardiovascular: No additional information not addressed in HPI [] GI: Denies abdominal pain, nausea, vomiting, bloody stools or diarrhea [] : Denies dysuria or hematuria [] Musculoskeletal: Right knee pain[] Integument: Denies rash or skin lesions [] Neurologic: Denies headache, focal weakness or sensory changes [] Endocrine: Denies polyuria or polydipsia [] All other systems were reviewed and found to be within normal limits, except as documented in this note. Allergies Allergies Allergies Coded Allergies Type Severity Reaction Last Updated Verified Penicillins Allergy Intermediate rash 09/03/13 Yes Physical Exam Physical Exam Constitutional: Well developed, well nourished, no acute distress, non-toxic appearance. [] HENT: Normocephalic, atraumatic, bilateral external ears normal, oropharynx [place], no oral exudates, nose normal. [] Eyes: PERRLA, EOMI, conjunctiva normal, no discharge. [] Neck: Normal range of motion, no tenderness, supple, no stridor. [] Cardiovascular: Heart rate regular rhythm, no murmur [] Lungs & Thorax: Bilateral breath sounds clear to auscultation [] Abdomen: Bowel sounds normal, soft, no tenderness, no masses, no pulsatile masses. [] Skin: Warm, dry, no erythema, no rash. [] Back: No tenderness, no CVA tenderness. [] Extremities: Right knee tenderness, swelling, ecchymosis, no obvious deformity[] Neurologic: Alert and oriented X 3, some right-sided weakness at baseline[] Psychologic: Affect normal, judgement normal, mood normal. [] EKG EKG [] Radiology/Procedures Radiology/Procedures [] Course & Med Decision Making Course & Med Decision Making Pertinent Labs and Imaging studies reviewed. (See chart for details) The patient's hemoglobin is 8.6. She has had similar low hemoglobins over the last 1 month according to the chart. Her creatinine is 1.8 which is similar to previous labs. Her knee x-ray does not show any fractures or dislocations. She does have soft tissue edema. This is likely contusion and ecchymosis. Her swelling is localized at the knee where the ecchymosis is found. I do not believe an ultrasound is necessary. DVT seems unlikely. The patient is already on Eliquis. I believe she can safely return to her care facility with supportive care. She is stable for discharge at this time. [] Dragon Disclaimer Dragon Disclaimer This electronic medical record was generated, in whole or in part, using a voice recognition dictation system. Departure Departure: Impression: Primary Impression: Contusion of right knee, initial encounter Disposition: 01 HOME, SELF-CARE Condition: STABLE Referrals: CRISPIN SHULTZ MD (PCP) Patient Instructions: Contusion, [id number] AVA MACIEL DO Jun 15, 2019 22:26
[2019-06-15 22:28] LABS: ANION GAP 9 (6-14); BLOOD UREA NITROGEN 22 mg/dL (7-20); BUN/CREATININE RATIO 12 (6-20); CALCIUM 8.3 mg/dL (8.5-10.1); CARBON DIOXIDE 25 mmol/L (21-32); CHLORIDE 105 mmol/L (98-107); CREATININE 1.8 mg/dL (0.6-1.0); GFR 27.4; GLUCOSE 252 mg/dL (70-99); POTASSIUM 3.6 mmol/L (3.5-5.1); SODIUM 139 mmol/L (136-145)
[2019-06-15 22:35] LABS: ALBUMIN 2.1 g/dL (3.4-5.0); ALBUMIN/GLOBULIN RATIO 0.5 (1.0-1.7); ALK PHOS 82 U/L (46-116); ALT (SGPT) 13 U/L (14-59); AST (SGOT) 14 U/L (15-37); TOTAL PROTEIN 6.1 g/dL (6.4-8.2)
[2019-06-15 22:36] LABS: TOTAL BILIRUBIN < 0.1 mg/dL (0.2-1.0)
[2019-06-15 22:48] LABS: CLARITY,URINE CLEAR; COLOR,URINE YELLOW
[2019-06-15 22:49] LABS: AMORPHOUS SEDIMENT,UR PRESENT /HPF; BACTERIA,URINE 0 /HPF (0-FEW); BILIRUBIN,URINE NEG (NEG); GLUCOSE,URINE 500 mg/dL (NEG); NITRITE,URINE NEG (NEG); RBC,URINE OCC /HPF (0-2); SQUAMOUS EPITHELIAL CELL,UR FEW /LPF; UROBILINOGEN,URINE 0.2 mg/dL (0.2 mg/dL); WBC,URINE OCC /HPF (0-4)
--- NOTE | 2019-06-15 23:28 | RAD ---
Right knee 3 views. HISTORY: Pain and swelling after a fall. 3 views were taken of the right knee. There is osteoarthritis. There is hypertrophic spurring. There are prominent joint bodies posteriorly. There is a joint effusion. There is spurring on the patella. An acute fracture is not identified. IMPRESSION: 1. Osteoarthritis right knee. 2. Prominent joint bodies. 3. Joint effusion. 4. No acute fracture. Electronically signed by: Hema Neville MD (06/15/2019 11:25 PM) [id number]
[2019-06-15 23:29] VITALS: BP 140/97
[2019-06-15] MEDS ORDERED: HYDROcodone/APAP 5/325MG 1 TAB TABLET PO ONE (23:45)
== END 2019-06-15 23:52 | disposition home or self-care (01) ==
LOC: ER 21:45
DX: S80.01XA Contusion of right knee, initial encounter (principal); K21.9 Gastro-esophageal reflux disease without esophagitis; E78.00 Pure hypercholesterolemia, unspecified; E11.22 Type 2 diabetes mellitus with diabetic chronic kidney disease; N18.9 Chronic kidney disease, unspecified; I12.9 Hypertensive chronic kidney disease with stage 1 through stage 4 chronic kidney disease, or unspecified chronic kidney disease; Z87.440 Personal history of urinary (tract) infections; Z86.73 Personal history of transient ischemic attack (TIA), and cerebral infarction without residual deficits; Z86.2 Personal history of diseases of the blood and blood-forming organs and certain disorders involving the immune mechanism; Z88.0 Allergy status to penicillin; W18.39XA Other fall on same level, initial encounter; Y93.89 Activity, other specified; Y92.89 Other specified places as the place of occurrence of the external cause; Y99.8 Other external cause status
CPT/HCPCS: 36415; 73562; 80053; 81001; 85025; 85610; 85730; 99284

== ENCOUNTER 2019-12-24 18:35 | Inpatient (IN) | payer OTHER, MEDICAID ==
[~2019-12-24] VITALS: Ht 154.9 cm; Wt 69.0 kg
--- NOTE | 2019-12-24 18:47 | PHYS DOC ---
Past History Past Medical History: Anemia, Anxiety, CVA, Depression, Diabetes, GERD, High Cholesterol, Hypertension, Renal Disease, Renal Failure, Stroke, TIA, UTI Additional Past Medical Histor: R hemipelegia, R HEMIPARESIS, DYSPHAGIA Past Surgical History: Cholecystectomy, Hysterectomy, Tubal ligation Smoking: Non-smoker Alcohol Use: None Drug Use: None General Adult HPI: HPI: ". I am getting fever...not well.. cough.. couple days.." Patient is a 74 year old female who presents with above hx and complaints of fever, cough, malaise, myalgia, weakness, chest pain and hypoxia. Pt. ill last two days. Was noted to have increased confustion. Pt. transfer from [facility]. Pt. has been a resident there since for rehab after CVA. Pt . reportedly had elevated BP- systolic 300, Lawn Specialist BP weas 210/170, on Non-rebreather for on set of hypoxia. Patient has history of Rt. 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 middle Cerebral Artery, gait disorder, generalized muscle deconditioning, cognitive acute communication defect, diabetes type 2, hyperlipidemia, major depressive disorder, anxiety disorder, renal disease, urinary retention, uti, insomnia hypertension, GERD, dysphasia, patient is on Eliquis 2.5 mg twice a day for cerebellar stroke syndrome. Hx. admit for pneumonia 05/30/19. Patient normally does not require oxygen to maintain saturation shelter gave no specific information on ill contacts or r other patients that may be ill at [facility] [place]. Patient's had no recent travel outside [facility] area. Patient does have been ordered to be evaluated for hospice. Patient currently a full code and active since 10/28/2018 patient's COVID test on 12/12/2019 reportedly negative pt. follow s with Dr. Shultz. Review of Systems: Review of Systems: Constitutional: Complaints of fever or chills Eyes: Denies change in visual acuity HENT: Denies nasal congestion or sore throat Respiratory: Complaints of cough and shortness of breath Cardiovascular: Denies chest pain or edema GI: Denies abdominal pain, nausea, vomiting, bloody stools or diarrhea : Denies dysuria Musculoskeletal: Denies back pain or joint pain Integument: Denies rash Neurologic: Denies headache, focal weakness or sensory changes Endocrine: Denies polyuria or polydipsia Lymphatic: Denies swollen glands Psychiatric: Denies depression or anxiety Heart Score: HEART Score for Chest Pain: HEART Score for Chest Pain Response (Comments) Value History Moderately Suspicious 1 ECG Nonspecific Repolarizatio 1 Age > 65 2 Risk Factors 1 or 2 Risk Factors 1 Troponin < Normal Limit 0 Total 5 Risk Factors: Risk Factors: DM, Current or recent (<one month) smoker, HTN, HLP, family history of CAD, obesity. Risk Scores: Score 0 - 3: 2.5% MACE over next 6 weeks - Discharge Home Score 4 - 6: 20.3% MACE over next 6 weeks - Admit for Clinical Observation Score 7 - 10: 72.7% MACE over next 6 weeks - Early Invasive Strategies Family History: Family History: Not currentl available Current Medications: Current Meds: See Nursing for Shelter Meds. Allergies: Allergies: Allergies Coded Allergies Type Severity Reaction Last Updated Verified Penicillins Allergy Intermediate rash 09/03/13 Yes Physical Exam: PE: Constitutional: Moderate acute distress,ill in appearance. [] HENT: Normocephalic, atraumatic, bilateral external ears normal, oropharynx moist, no oral exudates, nose swollen turbinates and rhinorrhea. Eyes: PERRLA, EOMI, conjunctiva normal, no discharge. [] Neck: Normal range of motion, no tenderness, supple, no stridor. [] Cardiovascular:Tachycardia, Heart rate regular rhythm, no murmur []PMI to t. Lungs & Thorax: Bilateral breath sounds Bi bibasilar crackles and rhonchi, scattered wheezes auscultation [] patient chest wall tenderness on left with palpation. Abdomen: Bowel sounds normal, soft, no tenderness, no masses, no pulsatile masses. Obese. SI injection site. Skin: Warm, dry, no erythema, no rash. Poor turgor Back: No tenderness, no CVA tenderness. [] Extremities: No tenderness, no cyanosis, no clubbing, ROM intact, no edema. Right upper arm and leg weakness-chronic since CVA of 10/28/2018-Per patient Neurologic: Alert and oriented X 3, moves all extremities on request,, has distal sensory, patient reports no new focal deficits noted. [] Does have at times garbled speech Psychologic: Affect anxious , judgement unable to determine at this time, mood deep breast EKG: EKG: My interpretation EKG shows a sinus tachycardia 102 bpm. No findings of acute STEMI with contralateral changes [] Radiology/Procedures: Radiology/Procedures: [[address] [address] IMAGING REPORT Signed PATIENT: CONSTANCE BRENNER AACCOUNT: [id number] : 1945 LOCATION: ER AGE: 74 SEX: F EXAM STATUS: REG ER ORD. PHYSICIAN: MEAGAN PEREIRA MD REASON: cough, fever, chills, dyspnea, hypoxia PROCEDURE: PORTABLE CHEST 1V PORTABLE CHEST 1V INDICATION: Reason: cough, fever, chills, dyspnea, hypoxia / Spl. Instructions: / History: . COMPARISON STUDY: 05/30/2019. FINDINGS: Lungs: Low lung volume. Bilateral perihilar and basilar opacities. Indistinct pulmonary vasculature. Pleura: No pleural effusion or pneumothorax. Heart and Mediastinum: Stable cardiomediastinal silhouette and great vessels. IMPRESSION: Bilateral perihilar and basilar opacities, likely edema or multifocal infection. Electronically signed by: Varinder Barnett MD (12/24/2019 8:39 PM) [facility] DICTATED AND SIGNED BY: VARINDER BARNETT MD DATE: 12/24/192038 CC: MEAGAN PEREIRA MD; CRISPIN SHULTZ MD ~ ][address] [address] IMAGING REPORT Signed PATIENT: CONSTANCE BRENNER AACCOUNT: [id number] : 1945 LOCATION: ER AGE: 74 SEX: F EXAM STATUS: REG ER ORD. PHYSICIAN: MEAGAN PEREIRA MD REASON: hx cva, falls PROCEDURE: CT HEAD AND CERVICAL SPINE WO CT HEAD AND CERVICAL SPINE WO Date: 12/24/2019 7:31 PM Clinical Indication: hx cva, falls, pain Comparison: 09/08/2016. Technique: 5 mm axial tomographic images were obtained of the head without contrast. These were viewed on brain and bone windows. Noncontrast CT of the cervical spine was performed. Sagittal and coronal reformats were performed and evaluated. One or more of the following dose reduction techniques were utilized: Automated exposure control (AEC), Adjustment of mA and/or kV according to patient size, Use of iterative reconstruction technique such as ASiR, CT scan done according to ALARA and image gently/image wisely HEAD FINDINGS: Mild generalized cerebral and cerebellar volume loss. Moderate nonspecific periventricular hypoattenuation, most commonly seen with chronic small vessel ischemic disease. Large area of left REAL ESTATE PROFESSOR territory encephalomalacia. No intra- or extra-axial mass or fluid collection. No acute hemorrhage. The ventricles are normal in size, shape, and morphology. The oliveira-white matter junction is normal. The basilar cisterns are patent. The visualized paranasal sinuses are normal. The visualized portions of the orbits and globes are normal. The mastoid air cells are clear. No aggressive osseous lesion or fracture. CERVICAL SPINE FINDINGS: The cervical spine is normally aligned. No acute fracture. No aggressive lytic or blastic osseous lesions. Moderate multilevel degenerative disc space height loss. Multilevel mild and moderate spinal canal stenosis secondary to disc protrusions and marginal osteophytes. Multilevel moderate to severe neuroforaminal narrowing secondary to uncovertebral arthrosis. Multilevel mild and moderate facet arthrosis. The thyroid gland is normal. No cervical lymphadenopathy. Bilateral carotid atherosclerosis. The visualized aerodigestive tract is normal. The visualized portions of the lungs are clear. IMPRESSION: 1. No acute intracranial process. 2. No acute cervical spine fracture. 3. Large area of left REAL ESTATE PROFESSOR territory encephalomalacia. Electronically signed by: Varinder Barnett MD (12/24/2019 9:04 PM) [facility] DICTATED AND SIGNED BY: VARINDER BARNETT MD DATE: 12/24/192103 CC: MEAGAN PEREIRA MD; CRISPIN SHULTZ MD ~ Course & Med Decision Making: Course & Med Decision Making Pertinent Labs and Imaging studies reviewed. (See chart for details) Discussed presentation, testing and treatment plan with Dr ZEPEDA. Advised admit for healthcare associated or acquired pneumonia. No COVID test at this time. Cancel COVID Impression: 1.Respiratory failure -hypoxia 2. Fever chills and cough 3. Right-sided pleural paresis CVA 10/28/2018 4. Bibasilar infiltrates traits-pneumonia healthcare acquired or healtcare associated 5. Dehydration 6. Elevated potassium 5.6 7. Elevated BNP 3628 8. Elevated d-dimer 4.07 9. Malnutrition albumin 2.2 10. Anemia hemoglobin 9.6 11. Urinary tract infection-white cells too numerous to count 12. DM 195 glucose [] Dragon Disclaimer: Dragon Disclaimer: This electronic medical record was generated, in whole or in part, using a voice recognition dictation system. Departure Departure: Disposition: 01 HOME/RESIDENCE PRIOR TO ADM Condition: STABLE Referrals: CRISPIN SHULTZ MD (PCP) Justification of Admission: Justification of Admission: Justification of Admission Dx: Yes Comments: Respiratory Failure- Hypoxia Dragon Disclaimer This chart was dictated in whole or in part using Voice Recognition software in a busy, high-work load, and often noisy Emergency Department environment. It may contain unintended and wholly unrecognized errors or omissions. Dragon Disclaimer This chart was dictated in whole or in part using Voice Recognition software in a busy, high-work load, and often noisy Emergency Department environment. It may contain unintended and wholly unrecognized errors or omissions. MEAGAN PEREIRA MD Dec 24, 2019 18:47
[2019-12-24] MEDS ORDERED: ACETAMINOPHEN 500 MG TABLET PO ONE ×2 (18:54→19:15)
[2019-12-24] MEDS ORDERED: IV RINGERS SOLUTION,LACTATED 1,000 ML IV SCH (19:00)
[2019-12-24] MEDS ORDERED: AZITHROMYCIN 250 MG TABLET. PO ONE (19:15)
[2019-12-24 19:17] LABS: BASO % 1 % (0-3); EOS % 0 % (0-3); HEMATOCRIT 29.8 % (36.0-47.0); HEMOGLOBIN 9.6 g/dL (12.0-15.5); LYMPH # 0.3 x10^3/uL (1.0-4.8); LYMPH % 3 % (24-48); MEAN CORPUSCULAR HEMOGLOBIN 30 pg (25-35); MEAN CORPUSCULAR HGB CONC 32 g/dL (31-37); MEAN CORPUSCULAR VOLUME 92 fL (79-100); MONO # 0.7 x10^3/uL (0.0-1.1); MONO % 8 % (0-9); NEUT # 7.3 x10^3uL (1.8-7.7); NEUT % 88 % (31-73); PLATELET COUNT 159 x10^3/uL (140-400); RED BLOOD COUNT 3.23 x10^6/uL (3.50-5.40); WHITE BLOOD COUNT 8.3 x10^3/uL (4.0-11.0)
[2019-12-24 19:21] LABS: CALCIUM 8.6 mg/dL (8.5-10.1); CREATININE 2.7 mg/dL (0.6-1.0); GFR 17.1; POTASSIUM 5.6 mmol/L (3.5-5.1)
[2019-12-24 19:34] LABS: ALBUMIN 2.7 g/dL (3.4-5.0); DIRECT BILIRUBIN 0.2 mg/dL (0.0-0.2); MAGNESIUM 1.8 mg/dL (1.8-2.4); TOTAL BILIRUBIN 0.4 mg/dL (0.2-1.0); TOTAL PROTEIN 6.8 g/dL (6.4-8.2)
[2019-12-24 19:45] LABS: AMPHETAMINE/METHAMPHETAMINE NEG (NEG); BARBITURATES NEG (NEG); BENZODIAZEPINES NEG (NEG); CANNABINOIDS NEG (NEG); COCAINE NEG (NEG); METHADONE NEG (NEG); OPIATES POS (NEG); PHENCYCLIDINE NEG (NEG)
[2019-12-24 19:48] LABS: BILIRUBIN,URINE NEG (NEG); CLARITY,URINE CLEAR; COLOR,URINE STRAW; GLUCOSE,URINE 100 mg/dL (NEG)
[2019-12-24 19:49] LABS: BACTERIA,URINE FEW /HPF (0-FEW); NITRITE,URINE NEG (NEG); UROBILINOGEN,URINE 0.2 mg/dL (0.2 mg/dL); WBC,URINE TNTC /HPF (0-4)
[2019-12-24 20:01] LABS: INFLUENZA A PATIENT NEGATIVE (NEGATIVE); INFLUENZA B PATIENT NEGATIVE (NEGATIVE)
--- NOTE | 2019-12-24 20:37 | EKG ---
[address] [address] Test Date: 2019-12-24 Test Time: 18:54:30 Pat Name: CONSTANCE BRENNER Department: Room: Gender: F Utilization Coordinator: : 1945 Requested By: MEAGAN PEREIRA Order Number: [id number] Reading MD: Measurements Intervals [place] Rate: 102 P: 26 KS: 150 QRS: 8 QRSD: 68 T: 52 QT: 326 QTc: 429 Interpretive Statements SINUS TACHYCARDIA OTHERWISE NORMAL ECG RI6.02 No previous ECG available for comparison
--- NOTE | 2019-12-24 20:42 | RAD ---
PORTABLE CHEST 1V INDICATION: Reason: cough, fever, chills, dyspnea, hypoxia / Spl. Instructions: / History: . COMPARISON STUDY: 05/30/2019. FINDINGS: Lungs: Low lung volume. Bilateral perihilar and basilar opacities. Indistinct pulmonary vasculature. Pleura: No pleural effusion or pneumothorax. Heart and Mediastinum: Stable cardiomediastinal silhouette and great vessels. IMPRESSION: Bilateral perihilar and basilar opacities, likely edema or multifocal infection. Electronically signed by: Jose Barnett MD (12/24/2019 8:39 PM) [facility]
--- NOTE | 2019-12-24 21:07 | RAD ---
CT HEAD AND CERVICAL SPINE WO Date: 12/24/2019 7:31 PM Clinical Indication: hx cva, falls, pain Comparison: 09/08/2016. Technique: 5 mm axial tomographic images were obtained of the head without contrast. These were viewed on brain and bone windows. Noncontrast CT of the cervical spine was performed. Sagittal and coronal reformats were performed and evaluated. One or more of the following dose reduction techniques were utilized: Automated exposure control (AEC), Adjustment of mA and/or kV according to patient size, Use of iterative reconstruction technique such as ASiR, CT scan done according to ALARA and image gently/image wisely HEAD FINDINGS: Mild generalized cerebral and cerebellar volume loss. Moderate nonspecific periventricular hypoattenuation, most commonly seen with chronic small vessel ischemic disease. Large area of left GATE MANAGER territory encephalomalacia. No intra- or extra-axial mass or fluid collection. No acute hemorrhage. The ventricles are normal in size, shape, and morphology. The oliveira-white matter junction is normal. The basilar cisterns are patent. The visualized paranasal sinuses are normal. The visualized portions of the orbits and globes are normal. The mastoid air cells are clear. No aggressive osseous lesion or fracture. CERVICAL SPINE FINDINGS: The cervical spine is normally aligned. No acute fracture. No aggressive lytic or blastic osseous lesions. Moderate multilevel degenerative disc space height loss. Multilevel mild and moderate spinal canal stenosis secondary to disc protrusions and marginal osteophytes. Multilevel moderate to severe neuroforaminal narrowing secondary to uncovertebral arthrosis. Multilevel mild and moderate facet arthrosis. The thyroid gland is normal. No cervical lymphadenopathy. Bilateral carotid atherosclerosis. The visualized aerodigestive tract is normal. The visualized portions of the lungs are clear. IMPRESSION: 1. No acute intracranial process. 2. No acute cervical spine fracture. 3. Large area of left GATE MANAGER territory encephalomalacia. Electronically signed by: Jose Barnett MD (12/24/2019 9:04 PM) [facility]
[2019-12-24] MEDS ORDERED: IV NORMAL SALINE 50ML 50 ML ONE (21:38)
[2019-12-24] MEDS ORDERED: cefTRIAXone SODIUM 1 GM VIAL ONE (21:38)
[2019-12-24] MEDS ORDERED: ACETAMINOPHEN 325 MG TABLET PO PRN (21:45)
[2019-12-24] MEDS ORDERED: ONDANSETRON PF 4 MG/2 ML VIAL. IVP PRN (21:45)
[2019-12-24] MEDS ORDERED: VANCOMYCIN PER PHARMACY MC PRN (21:45)
[2019-12-24] MEDS ORDERED: VANCOMYCIN 1 GM in IV NORMAL SALINE 250ML 250 ML IV ONE (22:00)
[2019-12-24 23:50] VITALS: BP 105/44
[2019-12-25] MEDS ORDERED: ACET325T21 PO (00:01)
[2019-12-25] MEDS ORDERED: DEXT-217 PO (00:01)
[2019-12-25] MEDS ORDERED: MAGN400O7 PO (00:01)
[2019-12-25] MEDS ORDERED: HYDR-3165 PO (00:01)
[2019-12-25] MEDS ORDERED: GABA-585 PO (00:01)
[2019-12-25] MEDS ORDERED: RIVA1PAT22 TP (00:01)
[2019-12-25] MEDS ORDERED: MEMA10TA PO (00:01)
[2019-12-25] MEDS ORDERED: ATOR20TA58 PO (00:01)
[2019-12-25] MEDS ORDERED: CALC500T31 PO (00:01)
[2019-12-25] MEDS ORDERED: ONDA4TAB7 PO (00:01)
[2019-12-25] MEDS ORDERED: INSU100I17 SQ (00:01)
[2019-12-25] MEDS ORDERED: SITA100T PO (00:01)
--- NOTE | 2019-12-25 00:11 | NUR ---
The patient, CONSTANCE BRENNER, 74 y/o, F admitted by FAMILIA ZEPEDA MD, was given written information regarding hospital policies, unit procedures and contact persons. Patient is resistive to care, combative, screaming; will not answer questions. Medical history and current medications obtained from [facility]. Bed locked and in lowest position, call light within reach. No valuables with patient on admission.
[2019-12-25] MEDS ORDERED: VANCOMYCIN 750 MG in IV NORMAL SALINE 250ML 250 ML IV ONE (01:00)
[2019-12-25] MEDS ORDERED: VANCOMYCIN 1 GM in IV NORMAL SALINE 250ML 250 ML IV ONE ×2 (03:00)
[2019-12-25 03:08] VITALS: BP 125/57
[2019-12-25] MEDS ORDERED: IPRATRPIUM/ALBUTEROL 0.5/2.5MG 3 ML NEBU. ONE (05:22)
[2019-12-25] MEDS: IPRATRPIUM/ALBUTEROL 0.5/2.5MG 3 ML NEBU. NEB SCH ×5 (05:23→20:13)
[2019-12-25 06:19] VITALS: BP 114/91
[2019-12-25 06:21] LABS: BASO % 0 % (0-3); EOS % 0 % (0-3); HEMOGLOBIN 8.6 g/dL (12.0-15.5); LYMPH # 0.7 x10^3/uL (1.0-4.8); LYMPH % 7 % (24-48); MEAN CORPUSCULAR HEMOGLOBIN 30 pg (25-35); MEAN CORPUSCULAR HGB CONC 32 g/dL (31-37); MEAN CORPUSCULAR VOLUME 93 fL (79-100); MONO # 0.8 x10^3/uL (0.0-1.1); MONO % 7 % (0-9); NEUT # 9.5 x10^3uL (1.8-7.7); NEUT % 86 % (31-73); PLATELET COUNT 157 x10^3/uL (140-400); RED BLOOD COUNT 2.89 x10^6/uL (3.50-5.40); RED CELL DISTRIBUTION WIDTH 15.8 % (11.5-14.5); WHITE BLOOD COUNT 11.1 x10^3/uL (4.0-11.0)
[2019-12-25 06:25] LABS: CALCIUM 8.6 mg/dL (8.5-10.1); CREATININE 2.8 mg/dL (0.6-1.0); GFR 16.4; POTASSIUM 5.6 mmol/L (3.5-5.1)
--- NOTE | 2019-12-25 09:15 | HP ---
ADMIT DATE: 12/24/2019 ATTENDING PHYSICIAN: Dr. Zepeda. CHIEF COMPLAINT: Weakness and shortness of breath. HISTORY OF PRESENT ILLNESS: The patient is a sweet 74-year-old female, currently a resident of [facility] for the last year and a half. She has had a stroke in 03/2019, resulting in generalized weakness and left sided hemiparesis. She is able to speak, her speech area has been spared. She has had complaints of several days of cough, malaise, fatigue, chest pressure and shortness of breath. Chest x-ray demonstrated bibasilar infiltrates, consistent with prison-acquired pneumonia. She was admitted then for further treatment and evaluation. Her code status is full at this time, although there is mention in the old charts that they were in the process of getting a hospice consult. She was given supplemental oxygen, started on antibiotics and admitted to the medical service. PAST MEDICAL HISTORY: Significant for the stroke, resulting in left-sided hemiparesis, generalized debilitation, hyperlipidemia, hypertension, chronic kidney disease, chronic renal failure, frequent UTIs, generalized anxiety, and anemia of chronic disease. In addition, she has had hemiparesis and dysphagia. Type 2 diabetes. PAST SURGICAL HISTORY: Includes cholecystectomy, hysterectomy and tubal ligation. ALLERGIES: SHE HAS ALLERGIES TO PENICILLINS. ADMISSION MEDICATIONS: Included the following. At the prison, she was scheduled to get Eliquis 2.5 mg b.i.d., Lipitor, Urecholine, BuSpar, calcium, Coreg 12.5 mg b.i.d., dextrose, Neurontin, hydrocodone p.r.n., insulin, lisinopril 20 mg daily, loperamide, magnesium, Namenda, Exelon in the form of a patch, Zoloft, Januvia and trazodone. SOCIAL HISTORY: She is a nonsmoker, nondrinker. FAMILY HISTORY: Unobtainable. REVIEW OF SYSTEMS: Significant for the generalized weakness. She is slightly confused. She denied any chest pain, palpitations. She does not feel well. She is very weak. She is bedridden. All other systems reviewed and determined to be negative. PHYSICAL EXAMINATION: GENERAL: When I saw her, this is a chronically ill-appearing female. INITIAL VITAL SIGNS: Showed a blood pressure 114/91 mmHg, pulse of 79 and irregular, temperature 98.9 degrees Fahrenheit, oxygen saturation 98% on room air. HEENT: The head is without trauma. The pupils are reactive. Mucous membranes are bit dry. NECK: Supple. There is no stridor or bruits. LUNGS: She has shallow respirations. There is minimal rhonchi noted at the bases. CARDIOVASCULAR: Showed distant heart tones. Irregularly irregular rhythm. No gallops. Peripheral pulses are palpable, but weak. ABDOMEN: Soft, scaphoid, nontender, no organomegaly. Bowel sounds were hypoactive. EXTREMITIES: Showed no cyanosis. She is bedridden this time. She is nonambulatory. Her ceiling insulation blower were slightly diminished on the left. NEUROLOGIC: Speech is otherwise fluent. SKIN: Warm and dry. PERTINENT LABORATORY AND X-RAY STUDIES: The chest x-ray showed poor inspiratory effort. There is bilateral perihilar and basilar opacities, indistinct pulmonary vasculature. This is certainly consistent with prison-acquired pneumonia. The obligatory CT of the head done in the ED showed no acute intracranial process. There are no cervical spine fractures. There is a large area of the left posterior cerebral artery territory that has been affected by stroke and there is significant encephalomalacia. LABORATORY DATA: Admission hemoglobin was 9.6 g/dL with white count of 8300. Electrolytes showed sodium of 141 mEq, potassium 5.6 mEq, creatinine is 2.7 mg/dL, nonfasting blood sugar 215. BNP was 3600. ASSESSMENT: 1. This 74-year-old female, prison resident, has bibasilar infiltrates consistent with healthcare-associated pneumonia. 2. Old cerebrovascular accident a year ago with residual hemiparesis. 3. Chronic kidney disease stage 4. Baseline creatinine appears to be 2.7 mg/dL. 4. Anemia of chronic disease. 5. Component of congestive heart failure. 6. Type 2 diabetes. 7. Paroxysmal atrial fibrillation with chronic anticoagulation. PLAN: 1. Admit to the ICU. 2. Intravenous antibiotics has been started. Rocephin has been chosen. This does not need to be adjusted based on renal clearance. 3. Some home meds continued. 4. Diabetic diet. 5. We will try to contact her daughter and family to discuss the code status. Her prognosis is certainly guarded. FAMILIA ZEPEDA MD DR: AVELINO/nicho JOB#: [id number] / [id number]
--- NOTE | 2019-12-25 10:00 | NUR ---
Did request home medications to be continued per Dr ZEPEDA and he said "not at this time". BgrayRN
[2019-12-25 11:11] VITALS: BP 180/75
[2019-12-25] MEDS: APIXABAN 2.5 MG TABLET PO SCH ×2 (13:45→20:55)
[2019-12-25] MEDS ORDERED: HALOPERIDOL LACT 5 MG/ML VIAL. IVP ONE (13:45)
--- NOTE | 2019-12-25 14:31 | NUR ---
Patient has been restless and agitated all day. Patient has been stating she just wants to go home. Patient needs constant reassurance and reorientation about her current situation. Dr Giraldo was called to report patient condition. Orders were received which included medications. Meds were administered and patient seems to be settling down at this point in time. Patient is currently resting in bed with side rails up X's 2, bed alarm, with call in reach. [facility] patient.
[2019-12-25 15:00] VITALS: BP 133/87
[2019-12-25] MEDS ORDERED: AZITHROMYCIN 250 MG TABLET. PO SCH (19:00)
[2019-12-25 19:45] VITALS: BP 170/70
--- NOTE | 2019-12-25 22:10 | NUR ---
Atrial fibrillation with rate 135-155 observed. Call placed to Dr Giraldo, orders received.
[2019-12-25] MEDS: LABETALOL 20 MG/4 ML DISP.SYRIN. IVP PRN ×2 (22:17→23:25)
[2019-12-25 23:12] VITALS: BP 176/94
[2019-12-25] MEDS: HALOPERIDOL LACT 5 MG/ML VIAL. IVP PRN (23:26)
[2019-12-25] MEDS: ACETAMINOPHEN 325 MG TABLET PO PRN (23:26)
[2019-12-26] MEDS: LABETALOL 20 MG/4 ML DISP.SYRIN. IVP PRN ×4 (00:30→04:38)
--- NOTE | 2019-12-26 02:06 | NUR ---
Patient has been restless and confused throughout shift. Calls out frequently for her mother and other relatives. Q2 turning no longer needed as patient is changing position frequently on her own.
[2019-12-26 03:30] VITALS: BP 97/64
[2019-12-26 06:16] VITALS: BP 126/60
[2019-12-26 08:00] VITALS: BP 132/78
[2019-12-26] MEDS: APIXABAN 2.5 MG TABLET PO SCH (08:45)
[2019-12-26] MEDS: HALOPERIDOL LACT 5 MG/ML VIAL. IVP PRN (08:45)
[2019-12-26 11:52] VITALS: BP 156/67
--- NOTE | 2019-12-26 12:00 | DS ---
DATE OF DISCHARGE: 12/26/2019 FINAL DISCHARGE DIAGNOSES: 1. A 74-year-old female with bibasilar pneumonia, healthcare-associated pneumonia. 2. Old cerebrovascular accident with residual hemiparesis. 3. Chronic kidney disease stage 4. 4. Anemia of chronic disease. 5. Chronic congestive heart failure, systolic. 6. Type 2 diabetes mellitus. 7. Paroxysmal atrial fibrillation. 8. Chronic anticoagulation. HISTORY AND PHYSICAL: This unfortunate 74-year-old female was sent here from the [facility]. She had increasing weakness and shortness of breath. Chest x-ray demonstrated bibasilar infiltrates consistent with pneumonia. She was admitted for further treatment and evaluation. She actually is a DNR as it turned out she was a hospice patient and that there were issues with the communications. Nevertheless, she was admitted and hospitalized and started on therapy. PHYSICAL EXAMINATION: Please see my dictated note. PERTINENT LABORATORY AND X-RAY STUDIES: Admission hemoglobin was 9.6 g/dL, white count 8300. Chemistry panel: Potassium was 5.6 mEq, sodium 141. Creatinine on admission had been 2.7 mg/dL with a BUN of 55. BNP is elevated. Urinalysis showed large amount of white cells. COURSE IN THE HOSPITAL: The patient was admitted with the diagnoses of pneumonia and urinary tract infection. She was started on Rocephin and Zithromax along with periodic Haldol for agitation. Her diet was advanced, and she was doing a little better. She was started on Eliquis in the ED. She was not symptomatic regarding her atrial fibrillation the stroke that she had had been completed. On the third hospital day, arrangements from her hospice team wanted her to go back to the [facility] for hospice care. I felt this is reasonable. Therefore, she is a DNR now. She was discharged then with continuation of antibiotics in the form of Keflex 500 mg p.o. t.i.d. and continuation of most of her home meds including Urecholine 25 mg daily, BuSpar 5 mg b.i.d., Coreg 12.5 mg b.i.d., Sisi as needed, hydrocodone p.r.n. pain, insulin regular and Lantus as prescribed, lisinopril 20 mg daily, Namenda 10 mg b.i.d., Exelon patch 4.6 mg every 24 hours, Zoloft 150 mg daily, and Januvia 100 mg daily. For now, we held the apixaban, Lipitor, calcium, and the Neurontin. In addition, I recommended Keflex 500 mg p.o. t.i.d. for 7 more days. She is now a DNR per advanced directive. She will return to [facility] with [facility] involved in her care. Her prognosis is terminal. She was discharged then from our hospital in stable condition with explicit instructions and followup care at [facility] with hospice. FAMILIA ZEPEDA MD DR: AVELINO/nicho JOB#: [id number] / [id number]
[2019-12-26] MEDS: ACETAMINOPHEN 325 MG TABLET PO PRN (12:37)
[2019-12-27] MEDS ORDERED: VANCOMYCIN RANDOM LEVEL. MC ONE (02:30)
--- NOTE | 2019-12-27 08:30 | NUR ---
[facility] CALLED TO INFORM NURSE THAT PT HAD GRAM POSITIVE RODS IN 1 OF 4 BOTTELS OF BLOOD CULTURES AND URINE CULTURE GREW OUT ECOLI. LABS FAXED TO [facility] ID. [phone]
--- NOTE | 2020-01-03 12:49 | NUR ---
IP: attempt to notify [place] of blood and urine culture results. Spoke to nurse Irby 12/31 to report drug resistant e coli. Multiple attempts 12/31 and 01/02 to fax report unsuccessful. Informed facility 12/31 that fax was not working, they stated they were aware. Left message for DON regarding alternative fax, no return call.
== END 2019-12-26 13:04 | disposition hospice, inpatient (51) | DRG 193 ==
LOC: ER 18:35 → ICU 22:26
PROVIDERS: ADMIT Hospitalist; ATTEND Hospitalist
DX: J18.9 Pneumonia, unspecified organism (principal); J96.91 Respiratory failure, unspecified with hypoxia; R65.11 Systemic inflammatory response syndrome (SIRS) of non-infectious origin with acute organ dysfunction; N39.0 Urinary tract infection, site not specified; I13.0 Hypertensive heart and chronic kidney disease with heart failure and stage 1 through stage 4 chronic kidney disease, or unspecified chronic kidney disease; I50.22 Chronic systolic (congestive) heart failure; I69.351 Hemiplegia and hemiparesis following cerebral infarction affecting right dominant side; I69.354 Hemiplegia and hemiparesis following cerebral infarction affecting left non-dominant side; N18.4 Chronic kidney disease, stage 4 (severe); E44.1 Mild protein-calorie malnutrition; D63.8 Anemia in other chronic diseases classified elsewhere; E11.22 Type 2 diabetes mellitus with diabetic chronic kidney disease; E78.00 Pure hypercholesterolemia, unspecified; E78.5 Hyperlipidemia, unspecified; E86.0 Dehydration; F41.1 Generalized anxiety disorder; G93.89 Other specified disorders of brain; I48.0 Paroxysmal atrial fibrillation; Y95 Nosocomial condition; Z66 Do not resuscitate; Z79.01 Long term (current) use of anticoagulants; Z79.84 Long term (current) use of oral hypoglycemic drugs; Z79.899 Other long term (current) drug therapy; Z87.440 Personal history of urinary (tract) infections; Z90.710 Acquired absence of both cervix and uterus; F32.9 Major depressive disorder, single episode, unspecified; F41.9 Anxiety disorder, unspecified; K21.9 Gastro-esophageal reflux disease without esophagitis; Z68.28 Body mass index [BMI] 28.0-28.9, adult
CPT/HCPCS: 36415; 51702; 70450; 71045; 72125; 80048; 80076; 80307; 81001; 82550; 83605; 83690; 83735; 83880; 84443; 84484; 85025; 85379; 85610; 85730; 87040; 87070; 87077; 87086; 87186; 87205; 87804; 87880; 93005; 94640; 96360; 96361; J0456; J0696; J1630; J2060; J3370; J3490; J7050; J7120; 99285-25

== ENCOUNTER 2021-02-17 16:18 | Observation (INO) | payer OTHER, MEDICAID ==
[~2021-02-17] VITALS: Ht 154.9 cm; Wt 69.0 kg
[~2021-02-17 16:18] MED LIST changes: +ACET325T21 PO; +CALC500T31 PO; +DEXT4TAB20 PO; +GABA-585 PO; +HYDR-3165 PO; +INSU100I17 SQ; -LISI-334 PO; +LISI20TA18 PO; +MAGN400O7 PO; +MEMA10TA PO; +ONDA4TAB7 PO; +RIVA1PAT22 TP; +SERT-269 PO; -SERT100T8 PO; +SITA100T PO
--- NOTE | 2021-02-17 16:51 | PHYS DOC ---
Past History Past Medical History: Anemia, Anxiety, CVA, Depression, Diabetes, GERD, High Cholesterol, Hypertension, Renal Disease, Renal Failure, Stroke, TIA, UTI Additional Past Medical Histor: R hemipelegia, R HEMIPARESIS, DYSPHAGIA (AVA MACIEL DO) Past Surgical History: Cholecystectomy, Hysterectomy, Tubal ligation (AVA MACIEL DO) Smoking: Non-smoker Alcohol Use: None Drug Use: None (AVA MACIEL DO) General Adult EDM: Chief Complaint: MECHANICAL FALL HPI: HPI: 75-year-old female presents via EMS from her care facility with a fall and right eyebrow laceration. The patient has dementia and does not remember at all what happened. She tells me that she is dying but she does not give specifics as to why. She does not complain of any pain but complains it hurts when I touch her eyebrow laceration. She has no other specific complaints. (AVA MACIEL DO) Review of Systems: Review of Systems: Constitutional: Denies fever or chills Eyes: Denies change in visual acuity HENT: Denies nasal congestion or sore throat Respiratory: Denies cough or shortness of breath Cardiovascular: Denies chest pain or edema GI: Denies abdominal pain, nausea, vomiting, bloody stools or diarrhea : Denies dysuria Musculoskeletal: Denies back pain or joint pain Integument: Right eyebrow laceration Neurologic: Denies headache, focal weakness or sensory changes Endocrine: Denies polyuria or polydipsia Lymphatic: Denies swollen glands Psychiatric: Denies depression or anxiety (AVA MACIEL DO) Allergies: Allergies: Allergies Coded Allergies Type Severity Reaction Last Updated Verified Penicillins Allergy Intermediate rash 09/03/13 Yes (AVA MACIEL DO) Physical Exam: PE: Constitutional: Well developed, well nourished, no acute distress, non-toxic appearance. [] HENT: Normocephalic, , bilateral external ears normal, oropharynx moist, no oral exudates, nose normal. [] Eyes: PERRLA, EOMI, conjunctiva normal, no discharge. [] Neck: Normal range of motion, no tenderness, supple, no stridor. [] Cardiovascular: Heart rate 78, regular rhythm, no murmur [] Lungs & Thorax: Bilateral breath sounds clear to auscultation [] Abdomen: Bowel sounds normal, soft, no tenderness, no masses, no pulsatile masses. [] Skin: 1 cm laceration right eyebrow [] Back: No tenderness, no CVA tenderness. [] Extremities: No tenderness, no cyanosis, no clubbing, ROM intact, no edema. [] Neurologic: Alert and oriented to person and place. [] Psychologic: Affect normal, judgement normal, mood anxious. [] (AVA MACIEL DO) EKG: EKG: [] (AVA MACEIL DO) Radiology/Procedures: Radiology/Procedures: [] Impressions: EXAMINATION: CT head and cervical spine without IV contrast INDICATION:75 years, Female, fall. COMPARISON: 12/24/2019 TECHNIQUE: Spiral acquisition of contiguous images from the skull base to the vertex were obtained. CT of the cervical spine was obtained using contiguous spiral imaging from the skull base to the upper thoracic level. Sagittal and coronal 2D reformatted series were provided by the technologist. Soft tissue and bone window algorithms were reviewed. Exposure: One or more of the following individualized dose reduction techniques were utilized for this examination: 1. Automated exposure control 2. Adjustment of the mA and/or kV according to patient size 3. Use of iterative reconstruction technique. FINDINGS: CT HEAD: The ventricles are normal in size. Neither mass, midline shift, intracranial hemorrhage, acute/subacute ischemic changes, nor extraaxial fluid collections are seen. Similar mild generalized cerebral and cerebellar volume loss. Moderate nonspecific periventricular hypoattenuation, indeterminate but most consistent with chronic small vessel ischemic disease. Similar appearance of large area of left MANAGER OF GLOBAL territory encephalomalacia. There is hypoattenuation of the tiffany which wasn't definitely visualized on the prior exam. The immediately adjacent hypoattenuation in the left cerebellar peduncle appears relatively similar to prior. There is subcutaneous edema involving the inferior margin of the right cheek favoring contusion. There is no definite fracture of the adjacent right axillary sinus or visualized facial bones. Paranasal sinuses and mastoid air cells are clear. The orbital contents appear within normal limits. No evidence of calvarial fracture. CT CERVICAL SPINE: Neither fracture, subluxation, nor traumatic spondylolisthesis is seen. Similar multilevel moderate to severe degenerative changes of the cervical spine. Multilevel mild and moderate spinal canal stenosis secondary to disc protrusion and marginal osteophytes appear similar. Similar multilevel moderate to severe neuroforaminal narrowing secondary to uncovertebral arthrosis. Soft tissues are unremarkable. There is a new 1.5 cm hypoattenuating nodule in the right thyroid gland. The visualized aerodigestive tract is normal. IMPRESSION: CT HEAD: 1. No evidence of acute intracranial abnormality. 2. Indeterminate hypoattenuating area involving the tiffany favors sequela of remote infarct. Further characterization with MRI may be considered if clinically indicated. 3. Large area of known left MANAGER OF GLOBAL territory encephalomalacia, overall similar. CT CERVICAL SPINE: 1. No evidence of fracture or traumatic spondylolisthesis of the cervical spine. 2. New 1.5 cm hypoattenuating nodule in the left thyroid gland. Correlation with endocrine function and nonemergent thyroid ultrasound. These findings were discussed with Dr. Maciel at 02/17/2021 5:[address] Sinha Electronically signed by: Taurus Sinha DO (02/17/2021 5:34 PM) [facility] DICTATED AND SIGNED BY: TAURUS SINHA DO DATE: 02/17/211714 CC: AVA MACIEL DO; CRISPIN SHULTZ MD ~MTH0 0 EXAMINATION: Chest radiograph. VIEWS: Single AP view of the chest COMPARISON: 12/24/2019 INDICATION:75 years, Female, Fall. FINDINGS: Normal cardiomediastinal silhouette. No focal consolidation. No pleural effusion or pneumothorax. Left shoulder terminates outside the field of view. No evidence of acute osseous process. IMPRESSION: No acute cardiopulmonary process. Electronically signed by: Taurus Sinha DO (02/17/2021 5:14 PM) [facility] DICTATED AND SIGNED BY: TAURUS SINHA DO DATE: 02/17/211713 CC: AVA MACIEL DO; CRISPIN SHULTZ MD ~MTH0 0 (AVA MACIEL DO) Heart Score: C/O Chest Pain: N/A Risk Factors: Risk Factors: DM, Current or recent (<one month) smoker, HTN, HLP, family history of CAD, obesity. Risk Scores: Score 0 - 3: 2.5% MACE over next 6 weeks - Discharge Home Score 4 - 6: 20.3% MACE over next 6 weeks - Admit for Clinical Observation Score 7 - 10: 72.7% MACE over next 6 weeks - Early Invasive Strategies (AVA MACIEL DO) Course & Med Decision Making: Course & Med Decision Making Pertinent Labs and Imaging studies reviewed. (See chart for details) The patient's CT scan does not show any acute findings. See official read for more details. CXR is negative for acute findings. Labs are unremarkable except for anemia. Urinalysis is positive for infection. The patient was treated with Levofloxacin in the ED. I have discussed the patient with Dr. Giraldo and he has accepted the patient for admission. (AVA MACIEL DO) Dragon Disclaimer: Dragon Disclaimer: This electronic medical record was generated, in whole or in part, using a voice recognition dictation system. (AVA MACIEL DO) Departure Departure: Impression: Primary Impression: UTI (urinary tract infection) Qualified Codes: N30.01 - Acute cystitis with hematuria Additional Impressions: Accidental fall Laceration of right eyebrow Disposition: ADMITTED INPATIENT Condition: STABLE Referrals: CRISPIN SHULTZ MD (PCP) AVA MACIEL DO Feb 17, 2021 16:51 MEAGAN PEREIRA MD Feb 17, 2021 20:59
--- NOTE | 2021-02-17 16:59 | EKG ---
[address] [address] Test Date: 2021-02-17 Test Time: 16:44:00 Pat Name: CONSTANCE BRENNER Department: Room: Gender: F Equities Trader: ZBIGNIEW : 1945 Requested By: AVA MACIEL Order Number: [id number] Reading MD: Js Padron Measurements Intervals [place] Rate: 77 P: 33 MI: 148 QRS: 7 QRSD: 68 T: 66 QT: 378 QTc: 430 Interpretive Statements SINUS RHYTHM T ABNORMALITY IN HIGH LATERAL LEADS Electronically Signed On 02-18-2021 14:21:45 END STAPLER by Js Padron
--- NOTE | 2021-02-17 17:17 | RAD ---
EXAMINATION: Chest radiograph. VIEWS: Single AP view of the chest COMPARISON: 12/24/2019 INDICATION:75 years, Female, Fall. FINDINGS: Normal cardiomediastinal silhouette. No focal consolidation. No pleural effusion or pneumothorax. Lef t shoulder terminates outside the field of view. No evidence of acute osseous process. IMPRESSION: No acute cardiopulmonary process. Electronically signed by: Emanuel Sinha DO (02/17/2021 5:14 PM) [facility]
--- NOTE | 2021-02-17 17:36 | RAD ---
EXAMINATION: CT head and cervical spine without IV contrast INDICATION:75 years, Female, fall. COMPARISON: 12/24/2019 TECHNIQUE: Spiral acquisition of contiguous images from the skull base to the vertex were obtained. C T of the cervical spine was obtained using contiguous spiral imaging from the skull base to the upper thoracic level. Sagittal and coronal 2D reformatted series were provided by the technologist. Soft t issue and bone window algorithms were reviewed. Exposure: One or more of the following individualized dose reduction techniques were utilized for thi s examination: 1. Automated exposure control 2. Adjustment of the mA and/or kV according to patient size 3. Use of iterative reconstruction technique. FINDINGS: CT HEAD: The ventricles are normal in size. Neither mass, midline shift, intracranial hemorrhage, acute/subacu te ischemic changes, nor extraaxial fluid collections are seen. Similar mild generalized cerebral and cerebellar volume loss. Moderate nonspecific periventricular hypoattenuation, indeterminate but most consistent with chronic small vessel ischemic disease. Similar appearance of large area of left HOUSEKEEPER territory encephalomalacia. There is hypoattenuation of the tiffany which wasn't definitely visualized o n the prior exam. The immediately adjacent hypoattenuation in the left cerebellar peduncle appears re latively similar to prior. There is subcutaneous edema involving the inferior margin of the right saúl ek favoring contusion. There is no definite fracture of the adjacent right axillary sinus or visualiz ed facial bones. Paranasal sinuses and mastoid air cells are clear. The orbital contents appear withi n normal limits. No evidence of calvarial fracture. CT CERVICAL SPINE: Neither fracture, subluxation, nor traumatic spondylolisthesis is seen. Similar multilevel moderate t o severe degenerative changes of the cervical spine. Multilevel mild and moderate spinal canal stenos is secondary to disc protrusion and marginal osteophytes appear similar. Similar multilevel moderate to severe neuroforaminal narrowing secondary to uncovertebral arthrosis. Soft tissues are unremarkabl e. There is a new 1.5 cm hypoattenuating nodule in the right thyroid gland. The visualized aerodigest marko tract is normal. IMPRESSION: CT HEAD: 1. No evidence of acute intracranial abnormality. 2. Indeterminate hypoattenuating area involving the tiffany favors sequela of remote infarct. Further ch aracterization with MRI may be considered if clinically indicated. 3. Large area of known left HOUSEKEEPER territory encephalomalacia, overall similar. CT CERVICAL SPINE: 1. No evidence of fracture or traumatic spondylolisthesis of the cervical spine. 2. New 1.5 cm hypoattenuating nodule in the left thyroid gland. Correlation with endocrine function a nd nonemergent thyroid ultrasound. These findings were discussed with Dr. Blanton at 02/17/2021 5:[address] Sinha Electronically signed by: Emanuel Sinha DO (02/17/2021 5:34 PM) [facility]
[2021-02-17] MEDS ORDERED: ONDANSETRON PF 4 MG/2 ML VIAL. IVP PRN (17:45)
[2021-02-17 17:48] LABS: BASO # 0.1 x10^3/uL (0.0-0.2); BASO % 1 % (0-3); EOS # 0.3 x10^3/uL (0.0-0.7); EOS % 6 % (0-3); HEMATOCRIT 31.6 % (36.0-47.0); HEMOGLOBIN 10.2 g/dL (12.0-15.5); LYMPH # 1.7 x10^3/uL (1.0-4.8); LYMPH % 28 % (24-48); MEAN CORPUSCULAR HEMOGLOBIN 30 pg (25-35); MEAN CORPUSCULAR HGB CONC 32 g/dL (31-37); MEAN CORPUSCULAR VOLUME 94 fL (79-100); MONO # 0.7 x10^3/uL (0.0-1.1); MONO % 12 % (0-9); NEUT # 3.3 x10^3uL (1.8-7.7); NEUT % 54 % (31-73); PLATELET COUNT 252 x10^3/uL (140-400); RED BLOOD COUNT 3.35 x10^6/uL (3.50-5.40); RED CELL DISTRIBUTION WIDTH 15.6 % (11.5-14.5)
[2021-02-17 17:58] LABS: CALCIUM 8.4 mg/dL (8.5-10.1); CREATININE 3.2 mg/dL (0.6-1.0); POTASSIUM 4.9 mmol/L (3.5-5.1)
[2021-02-17 18:04] LABS: ALBUMIN 2.7 g/dL (3.4-5.0); ALBUMIN/GLOBULIN RATIO 0.8 (1.0-1.7); TOTAL BILIRUBIN 0.1 mg/dL (0.2-1.0)
[2021-02-17 18:08] LABS: BILIRUBIN,URINE NEG (NEG); CLARITY,URINE TURBID; COLOR,URINE YELLOW; GLUCOSE,URINE NEG (NEG)
[2021-02-17 18:09] LABS: BACTERIA,URINE MANY /HPF (0-FEW); NITRITE,URINE NEG (NEG); SQUAMOUS EPITHELIAL CELL,UR OCC /LPF; UROBILINOGEN,URINE 0.2 mg/dL (0.2 mg/dL); WBC,URINE TNTC /HPF (0-4)
[2021-02-17 21:15] VITALS: BP 138/77
[2021-02-17] MEDS ORDERED: ALPR0.25 PO (23:03)
[2021-02-17] MEDS ORDERED: ASCO100T4 PO (23:03)
[2021-02-17] MEDS ORDERED: POLY17PO5 PO (23:03)
[2021-02-17] MEDS ORDERED: TRAZ-120 PO (23:03)
[2021-02-17] MEDS ORDERED: DEXT4TAB20 PO (23:03)
[2021-02-17] MEDS ORDERED: ALBU2.5V8 INH (23:03)
[2021-02-17] MEDS ORDERED: FURO-69 PO (23:03)
[2021-02-17] MEDS ORDERED: LOPE2TAB27 PO (23:03)
[2021-02-17] MEDS ORDERED: RIVA1PAT23 TP (23:03)
[2021-02-17] MEDS ORDERED: ALBU2.5V14 NEB (23:03)
[2021-02-17 23:10] VITALS: BP 148/74
--- NOTE | 2021-02-17 23:18 | NUR ---
The patient, CONSTANCE BRENNER, 75 y/o, F admitted by FAMILIA ZEPEDA MD, was given written information regarding hospital policies, unit procedures and contact persons. Valuables were checked and vital signs obtained. PT oriented to unit but is confused. PT is oriented to self and place (city) only. Telephoned facility. HERMAN Renae said PT is usually between 1-3 orientation, mostly just self orientation. PT will recognize family and staff occasionally. PT is unable to state her PMH, PSH, SH or medications. PMH, diet and medications obtained from facility paperwork sent with PT. PT was found on the floor at the facility. RN stated PT is a Jeb lift to wheelchair only. Per RN, PT often attempts to climb from wheelchair or out of bed. PT is very forgetful and confused. Bed alarm applied. PT is incontinent of bowel and bladder. PT is a DNR on hospice at facility through [facility]. Blood glucose obtained daily per records obtained; however, PT receives NovoLog TID with meals and Lantus at . PT has refused influenza vaccine at facility. PT received 2 doses of docplanner COVID vaccine, both in April of 2020. Per RN, PT takes all medications crushed in yogurt. PT has been ordered meal supplements.
--- NOTE | 2021-02-17 23:27 | NUR ---
PT with confusion and pulling telemetry leads off several times and will not wear gown. PT being closely monitored. Bed alarm remains in place at this time.
--- NOTE | 2021-02-17 23:42 | NUR ---
PT agitated, pulled RT IV out and trying to pull brief off (tearing into brief). MD telephoned, orders obtained. MD will review home medications in the morning.
[2021-02-17] MEDS ORDERED: LORazepam 0.5 MG TABLET PO PRN (23:45)
[2021-02-18 06:38] VITALS: BP 121/62
--- NOTE | 2021-02-18 09:33 | HP ---
DATE OF SERVICE: 02/18/2021 ADMIT DATE: 02/17/2021 ATTENDING PHYSICIAN: Dr. Giraldo. CHIEF COMPLAINT: Fall and slight laceration. HISTORY OF PRESENT ILLNESS: The patient is a 75-year-old female from a [facility]. She is profoundly demented. She had fallen. She is already on hospice. She was admitted for observation because of the fall and monitoring her neurologic status. She is already a DNR per advanced directives. In the ED, the obligatory CT of the head demonstrated no acute bleeds or strokes. There is a large area of left posterior territory encephalomalacia due to old stroke. PAST MEDICAL HISTORY: Significant for profound dementia, old stroke with encephalomalacia, degenerative arthritis, type 2 diabetes, gastroesophageal reflux disease, chronic kidney disease, old stroke, frequent UTIs and anxiety. She has significant right hemiparesis and dysphagia. CURRENT MEDICATIONS: [facility] from the [facility], she was taking scheduled albuterol, alprazolam, ascorbic acid, bethanechol, Coreg, fexofenadine, Lasix, hydrocodone, insulin, lisinopril, loperamide, Namenda, MiraLax, Exelon, Zoloft and trazodone. ALLERGIES: SHE HAS ALLERGIES TO PENICILLIN, EXACT REACTIONS UNCLEAR. SOCIAL HISTORY: She is a nonsmoker, nondrinker. One daughter is durable power of disability attorney. FAMILY HISTORY: Unobtainable. REVIEW OF SYSTEMS: Unobtainable. PHYSICAL EXAMINATION: GENERAL: When I saw her, this is a profoundly confused elderly female. VITAL SIGNS: Initial vital signs showed a blood pressure of 148/74, pulse is 91 and regular. She is afebrile. Oxygen saturation 99% on room air. HEENT: Head is without trauma. Pupils are reactive. Sclerae nonicteric. Oropharynx clear. NECK: Supple, no bruits identified. LUNGS: Shallow respirations. CARDIOVASCULAR: Regular heart tones. No gallop. ABDOMEN: Soft. EXTREMITIES: Without edema. NEUROLOGIC: Profound confusion and bedridden. PERTINENT LABORATORY STUDIES: Hemoglobin 10.2, white count 6000. Electrolytes; creatinine is 3.2 mg percent with a BUN of 61. Potassium is 4.9 mEq. ASSESSMENT: 1. A 75-year-old female fell at the [facility], sustaining a slight laceration to the forehead. This was treated in the ED. 2. Urinary tract infection. 3. Profound dementia. 4. Chronic kidney disease stage V. 5. Old cerebrovascular accident with significant encephalomalacia. PLAN: 1. Observation status. 2. Empiric antibiotics. 3. Diuretics have been held, medication simplified. 4. She remains a DNR. 5. We will try to get back to the [facility] for management tomorrow. AVELINO DR: Che TID: [id number] CC: Jaspal Pollock
--- NOTE | 2021-02-18 10:57 | NUR ---
Discharge orders placed this AM. PO Keflex ordered upon discharge. Report called to HERMAN Dailey at [facility]. EMS called. EMS arrived to bedside @ 1010. IV discontinued. Pt discharged @ 1015.
--- NOTE | 2021-02-18 13:47 | DS ---
DATE OF DISCHARGE: 02/18/2021 ATTENDING PHYSICIAN: Dr. Giraldo. FINAL DISCHARGE DIAGNOSES: 1. Fall at [facility] with superficial laceration, treated. 2. Profound dementia. 3. Urinary tract infection, frequent. 4. Old cerebrovascular accident with encephalomalacia. 5. Renal failure, acute on chronic. 6. Hemiparesis. 7. Profound dementia. 8. Gastroesophageal reflux disease. 9. Essential hypertension. HISTORY AND PHYSICAL: The patient is a 75-year-old female with multiple strokes. She is in the end-stage of her life. She fell and sustained a laceration. She was admitted to the ED, she had been a DNR and was on hospice care. PHYSICAL EXAMINATION: Please see the dictated note. PERTINENT LABORATORY AND X-RAY STUDIES: CT head showed significant encephalomalacia, no new strokes or bleeds. No urine cultures were drawn. She had an abnormal UA. Creatinine was 3.1 mg/dL, which is about baseline for her. COURSE IN THE HOSPITAL: She was admitted. She was given a dose of Rocephin. We continued cephalexin. She was at her baseline. Unfortunately, she is profoundly demented, requiring total 24-hour daycare. She is already on hospice. She will return back to [facility] with some simplification of medication. I took the liberty of stopping several meds, which she does not need. Her prognosis is terminal. Therefore, she is discharged back to [facility] with hospice care. We will continue cephalexin 250 p.o. t.i.d. for 5 more days and stop. For now, we will continue her alprazolam p.r.n., Coreg, hydrocodone p.r.n., insulin regular and Lantus, lisinopril, Namenda, ondansetron, MiraLax, Exelon, Zoloft and the Januvia, dose is unchanged. For now, I took the liberty of stopping her Tylenol, scheduled albuterol, ascorbic acid, bethanechol, dextrose, fexofenadine, Lasix, loperamide, and trazodone doses. I did not feel these were necessary. Her prognosis is terminal. She remains a DNR. She is in hospice care. She was discharged from our hospital in stable condition with explicit instructions for end of life care. AVELINO/GENESIS/LEILA DR: Che TID: [id number] CC: Jaspal Pollock
== END 2021-02-18 10:15 | disposition home or self-care (01) ==
LOC: ER 16:18 → 1 SOUTH 21:01 → INTOOBSV 21:01
PROVIDERS: ADMIT Hospitalist; ATTEND Hospitalist
DX: S01.111A Laceration without foreign body of right eyelid and periocular area, initial encounter (principal); Z20.822 Contact with and (suspected) exposure to COVID-19; F03.90 Unspecified dementia, unspecified severity, without behavioral disturbance, psychotic disturbance, mood disturbance, and anxiety; I12.0 Hypertensive chronic kidney disease with stage 5 chronic kidney disease or end stage renal disease; N18.5 Chronic kidney disease, stage 5; E11.22 Type 2 diabetes mellitus with diabetic chronic kidney disease; N30.01 Acute cystitis with hematuria; K21.9 Gastro-esophageal reflux disease without esophagitis; M19.90 Unspecified osteoarthritis, unspecified site; G93.89 Other specified disorders of brain; E78.00 Pure hypercholesterolemia, unspecified; G81.91 Hemiplegia, unspecified affecting right dominant side; I69.398 Other sequelae of cerebral infarction; N17.9 Acute kidney failure, unspecified; Z79.4 Long term (current) use of insulin; Z51.5 Encounter for palliative care; Z66 Do not resuscitate; Z87.440 Personal history of urinary (tract) infections; Z90.710 Acquired absence of both cervix and uterus; Z90.49 Acquired absence of other specified parts of digestive tract; Z98.51 Tubal ligation status; W18.30XA Fall on same level, unspecified, initial encounter; Y92.129 Unspecified place in nursing home as the place of occurrence of the external cause; Y93.89 Activity, other specified; Y99.8 Other external cause status
CPT/HCPCS: 36415; 70450; 71045; 72125; 80053; 81001; 83605; 84484; 85025; 87040; 87077; 87086; 87186; 93005; 96365; 99285; G0378; J1956; U0003; G0379